=== PATIENT | female | born 1940 | race American Indian/Alaskan Native ===

== ENCOUNTER 2016-12-16 13:09 | Inpatient (IN) | payer MEDICARE ==
[2016-12-16 18:50] VITALS: BMI 35.1
[2016-12-16] MEDS: Insulin Lispro (humaLOG) 100 Units/ml Inj SC SCH (21:00)
[2016-12-17 06:30] LABS: BASO % 0.4 % (0.0-2.0); EOS # 0.3 K/uL (0.0-0.7); EOS % 2.7 % (0.0-4.0); HEMATOCRIT 34.5 % (34.0-47.0); LYMPH # 3.2 K/uL (1.0-4.3); MEAN CELL VOLUME 88.4 fl (81.0-99.0); MEAN CORPUSCULAR HEMOGLOBIN 29.1 pg (27.0-31.0); MEAN CORPUSCULAR HGB CONC 32.9 g/dL (33.0-37.0); MEAN PLATELET VOLUME 9.6 fl (7.2-11.7); MONO # 1.1 K/uL (0.0-0.8); MONO % 9.4 % (0.0-10.0); NEUT # 6.7 K/uL (1.8-7.0); NEUT % 59.5 % (50.0-75.0); NRBC % 0.1 % (0.0-0.0); RED CELL DISTRIBUTION WIDTH 13.8 % (11.5-14.5); WHITE BLOOD COUNT 11.3 K/uL (4.8-10.8)
[2016-12-17] MEDS: Insulin Lispro (humaLOG) 100 Units/ml Inj SC SCH ×4 (06:30→21:00)
[2016-12-17 06:42] LABS: ALKALINE PHOSPHATASE 61 U/L (38-126); ALT/SGPT 35 U/L (9-52); AST/SGOT 31 U/L (14-36); BILIRUBIN,TOTAL 0.5 mg/dl (0.2-1.3); BLOOD UREA NITROGEN 11 mg/dl (7-17); CALCIUM 9.2 mg/dL (8.4-10.2); CARBON DIOXIDE 32 mmol/L (22-30); CHLORIDE 102 mmol/L (98-107); GFR AFRICAN-AMERICAN > 60; GLUCOSE,RANDOM 88 mg/dL (65-105); MAGNESIUM 1.7 MG/DL (1.6-2.3); PHOSPHOROUS 3.5 mg/dl (2.5-4.5); POTASSIUM 4.2 MMOL/L (3.6-5.0); SODIUM 140 mmol/l (132-148); TOTAL PROTEIN 6.4 G/DL (6.3-8.2)
[2016-12-17 06:47] LABS: PARTIAL THROMBOPLASTIN TIME 30.6 Seconds (25.6-37.1)
[2016-12-17 07:06] LABS: THYROID STIMULATING HORMONE 2.77 mIU/ML (0.46-4.68)
[2016-12-17] MEDS: Enoxaparin 40 mg Syringe SC SCH (08:02)
[2016-12-17] MEDS: Pantoprazole 40 mg EC Tab PO SCH (08:03)
--- NOTE | 2016-12-17 13:21 | CP.PCM.CON ---
History of Present Illness - History of Present Illness History of Present Illness: Dr Garcia PMR consultation on Lauren Travis, born 1940, who has been admitted to [facility] for acute inpatient rehabilitation following a left CVA. She had a fall and noted weakness. Imaging revealed a left acute infarct. 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 short distances Review of Systems - Constitutional Constitutional: absent: Anorexia, Chills - EENT Nose/Mouth/Throat: absent: Nasal Congestion - Cardiovascular Cardiovascular: absent: Chest Pain - Respiratory Respiratory: absent: Chest Congestion - Gastrointestinal Gastrointestinal: absent: Belching, Diarrhea, Dyspepsia - Musculoskeletal Musculoskeletal: absent: Back Pain - Integumentary Integumentary: absent: Bleeding Lesions - Neurological Neurological: absent: Abnormal Movements, Behavioral Changes, Disequilibrium Past Patient History - Past Medical History & Family History Past Medical History?: Yes - Past Social History Smoking Status: Light Smoker < 10 Cigarettes Daily Alcohol: Occasional Drugs: Denies Home Situation {Lives}: With Family - CARDIAC Hx Hypertension: Yes - NEUROLOGICAL Hx Neurological Disorder: Yes HX Cerebrovascular Accident: Yes Other/Comment: - CVA: 1) 12/11/16 & 2) "About 10 years ago" with right residual weakness + left facial drooop; denied any aphasia - HEENT Hx HEENT Problems: Yes (c/o of blurry vision (but not wearing any glasses)) - ENDOCRINE/METABOLIC Hx Endocrine Disorders: Yes Hx Diabetes Mellitus Type 2: Yes - HEMATOLOGICAL/ONCOLOGICAL Hx AIDS: No Hx Human Immunodeficiency Virus (HIV): No - MUSCULOSKELETAL/RHEUMATOLOGICAL Hx Falls: Yes (12/11/16) - PSYCHIATRIC Hx Substance Use: No - SURGICAL HISTORY Hx Hysterectomy: Yes ("Years ago") - ANESTHESIA Hx Anesthesia: Yes Hx Anesthesia Reactions: No Hx Malignant Hyperthermia: No Has any member of the family had a problem w/ anesthesia?: No Meds Allergies/Adverse Reactions: Allergies Allergy/AdvReac Type Severity Reaction Status Date / Time No Known Allergies Allergy Verified 12/16/16 19:13 - Medications Medications: Current Medications Aspirin (Aspirin Chewable) 81 mg PO DAILY [facility] Last Admin: 12/17/16 08:02 Dose: 81 mg Atorvastatin Calcium (Lipitor) 20 mg PO HS [facility] Last Admin: 12/16/16 21:17 Dose: 20 mg Clopidogrel Bisulfate (Plavix) 75 mg PO DAILY [facility] Last Admin: 12/17/16 08:02 Dose: 75 mg Enoxaparin Sodium (Lovenox) 40 mg SC DAILY [facility] PRN Reason: Protocol Last Admin: 12/17/16 08:02 Dose: 40 mg Insulin Human Lispro (Humalog) 0 units SC ACHS [facility] PRN Reason: Protocol Last Admin: 12/17/16 11:43 Dose: Not Given Pantoprazole Sodium (Protonix Ec Tab) 40 mg PO DAILY [facility] Last Admin: 12/17/16 08:03 Dose: 40 mg Valsartan (Diovan) 160 mg PO DAILY [facility] Last Admin: 12/17/16 08:02 Dose: 160 mg Physical Exam - Constitutional Appears: Non-toxic, Other (obese) - Head Exam Head Exam: ATRAUMATIC, NORMAL INSPECTION, NORMOCEPHALIC - Respiratory Exam Respiratory Exam: absent: Wheezes - Cardiovascular Exam Cardiovascular Exam: REGULAR RHYTHM - GI/Abdominal Exam GI & Abdominal Exam: absent: Firm, Guarding - Neurological Exam Neurological exam: Alert, CN II-XII Intact, Oriented x3 - Psychiatric Exam Psychiatric exam: Normal Affect Results - Vital Signs Recent Vital Signs: Last Vital Signs Temp 97.5 F L 12/17/16 08:49 Pulse 64 12/17/16 08:51 Resp 18 12/17/16 08:49 BP 136/91 H 12/17/16 08:51 Pulse Ox 96 12/17/16 08:51 - Labs Result Diagrams: 12/17/16 05:25 12/17/16 05:25 Labs: Laboratory Results - last 24 hr 12/16/16 12/17/16 12/17/16 20:48 05:25 05:25 WBC 11.3 H RBC 3.90 Hgb 11.3 L Hct 34.5 MCV 88.4 MCH 29.1 MCHC 32.9 L RDW 13.8 Plt Count 252 MPV 9.6 Neut % (Auto) 59.5 Lymph % (Auto) 28.0 [place] % (Auto) 9.4 Eos % (Auto) 2.7 Baso % (Auto) 0.4 Neut # 6.7 Lymph # 3.2 [place] # 1.1 H Eos # 0.3 Baso # 0.0 PT 11.4 INR 1.1 APTT 30.6 Sodium Potassium Chloride Carbon Dioxide Anion Gap BUN Creatinine Est GFR ( Amer) Est GFR (Non-Af Amer) POC Glucose (mg/dL) 100 Random Glucose Calcium Phosphorus Magnesium Total Bilirubin AST ALT Alkaline Phosphatase Total Protein Albumin Globulin Albumin/Globulin Ratio Vitamin B12 TSH 3rd Generation 12/17/16 12/17/16 12/17/16 05:25 06:13 11:06 WBC RBC Hgb Hct MCV MCH MCHC RDW Plt Count MPV Neut % (Auto) Lymph % (Auto) [place] % (Auto) Eos % (Auto) Baso % (Auto) Neut # Lymph # [place] # Eos # Baso # PT INR APTT Sodium 140 Potassium 4.2 Chloride 102 Carbon Dioxide 32 H Anion Gap 10 BUN 11 Creatinine 0.7 Est GFR ( Amer) > 60 Est GFR (Non-Af Amer) > 60 POC Glucose (mg/dL) 86 126 H Random Glucose 88 Calcium 9.2 Phosphorus 3.5 Magnesium 1.7 Total Bilirubin 0.5 AST 31 ALT 35 Alkaline Phosphatase 61 Total Protein 6.4 Albumin 3.3 L Globulin 3.2 Albumin/Globulin Ratio 1.0 Vitamin B12 638 TSH 3rd Generation 2.77 Assessment & Plan - Assessment and Plan (Free Text) Assessment: PT/OT to continue to help increase functional independence Team conference for d/c planning Pain: controlled Vascular: no evidence of DVT GI: No evidence of constipation or diarrhea Patient is an excellent acute rehabilitation candidate and will have focused PT , OT and recreational therapy to help facilitate a safe and appropriate d/c plan She is quite weak overall and it will be a challenge to get her home without the need of some NASIM
--- NOTE | 2016-12-17 13:22 | CP.PCM.PN ---
Subjective - Date & Time of Evaluation Date of Evaluation: 12/17/16 Time of Evaluation: 13:21 - Subjective Subjective: CVA Objective - Vital Signs/Intake and Output Vital Signs (last 24 hours): Temp Pulse Resp BP Pulse Ox 97.5 F L 64 18 136/91 H 96 12/17/16 08:49 12/17/16 08:51 12/17/16 08:49 12/17/16 08:51 12/17/16 08:51 - Medications Medications: Current Medications Aspirin (Aspirin Chewable) 81 mg PO DAILY [facility] Last Admin: 12/17/16 08:02 Dose: 81 mg Atorvastatin Calcium (Lipitor) 20 mg PO HS [facility] Last Admin: 12/16/16 21:17 Dose: 20 mg Clopidogrel Bisulfate (Plavix) 75 mg PO DAILY [facility] Last Admin: 12/17/16 08:02 Dose: 75 mg Enoxaparin Sodium (Lovenox) 40 mg SC DAILY [facility] PRN Reason: Protocol Last Admin: 12/17/16 08:02 Dose: 40 mg Insulin Human Lispro (Humalog) 0 units SC [facility] PRN Reason: Protocol Last Admin: 12/17/16 11:43 Dose: Not Given Pantoprazole Sodium (Protonix Ec Tab) 40 mg PO DAILY [facility] Last Admin: 12/17/16 08:03 Dose: 40 mg Valsartan (Diovan) 160 mg PO DAILY [facility] Last Admin: 12/17/16 08:02 Dose: 160 mg - Labs Labs: 12/17/16 05:25 12/17/16 05:25 PT 11.4 Seconds (9.8-13.1) 12/17/16 05:25 INR 1.1 (0.9-1.2) 12/17/16 05:25 APTT 30.6 Seconds (25.6-37.1) 12/17/16 05:25 Physiatry Overall Plan of Care - Overall Plan of Care Estimated Length of Stay in Weeks: 3 Rehab Impairment: Mobility, Gait, Balance, Coordination Etiologic Diagnosis: Cerebrovascular Accident Rehab/Medical Prognosis: Fair - Anticipated Interventions Physical Therapy:: Yes Occupational Therapy:: Yes Recreational Therapy:: Yes - Therapy Goals Bed Mobility: Minimal Assistance Ambulation: Minimal Assistance Functional Positional Changes:: Minimal Assistance - Discharge Plan Discharge Destination: Subacute
--- NOTE | 2016-12-17 13:24 | PSY.TMCNF ---
Nursing - Vital Signs Vital Signs (Last 8 hours): Vital Signs 12/17/16 12/17/16 12/17/16 07:35 08:49 08:51 Temperature 97.5 F L 97.5 F L Pulse Rate 56 L 56 L 64 Respiratory 18 18 Rate Blood Pressure 180/81 H 180/81 H 136/91 H O2 Sat by Pulse 96 96 Oximetry Pain: 0 - Medications/Other Issues Comment: to follow as per nutrition protocol - Bladder Management Bladder Pattern: Normal Voiding Method: Bedpan - Bowel Management Bowel Pattern: Normal Physical Therapy - Bed Mobility Bed Mobility: Verbal Cues, Moderate Assistance - Transfers Wheelchair to Mat: Verbal Cues, Maximum Assistance Sit to Stand: Verbal Cues, Maximum Assistance - Ambulation Level of Assistance: Verbal Cues, Moderate Assistance Distance (ft.): 8 Assistive Devices: Rolling Walker - Stair Negotiation Stairs: Level of Assistance: Not Tested - Standing Balance Static Stand: Moderate Assistance Dynamic Stand: Unable to assess/perform - Pain Pain (assessed during therapy session): 0 Comment: pt denies pain - Insight/Carryover Insight/Carryover: Good - Patient/Family Education Comment: Pt educated on role of PT, PT goals, therapy schedule, and safety. Education for proper techniques during functional mobility training. - Assessment/Plan Assessment: PT IE complete today. Pt presents with impaired RLE/RUE strength, standing balance, and endurance resulting in pt requiring mod A for bed mobility , max A for transfers, and mod A for ambulating 8 feet with RW. Pt will benefit from skilled PT intervention to address deficits and maximize functional independence. Pt has supportive daughter at home. - Goals Timeframe: 4 weeks Goals: Sit < > supine with supervision. Sit < > stand with RW and supervision. Pt will ambulate 150 ft with RW and supervision. Pt will ascend/descend flight of stairs with B handrails and CGA. - Provider Therapist: Maria Eugenia Burden PT, DPT License Number: [id number] Occupational Therapy - Arousal/Attention/Orientation Patient Orientation: Person, Place, Time - Pain Pain (assessed during therapy session): 0 Comment: pt denies pain - Insight/Carryover Insight/Carryover: Good - Patient/Family Education Comment: Pt educated on role of PT, PT goals, therapy schedule, and safety. Education for proper techniques during functional mobility training. - Assessment/Plan Assessment: PT IE complete today. Pt presents with impaired RLE/RUE strength, standing balance, and endurance resulting in pt requiring mod A for bed mobility , max A for transfers, and mod A for ambulating 8 feet with RW. Pt will benefit from skilled PT intervention to address deficits and maximize functional independence. Pt has supportive daughter at home. - Goals Timeframe: 4 weeks Goals: Sit < > supine with supervision. Sit < > stand with RW and supervision. Pt will ambulate 150 ft with RW and supervision. Pt will ascend/descend flight of stairs with B handrails and CGA. Speech Therapy - Plan Assessment: PT IE complete today. Pt presents with impaired RLE/RUE strength, standing balance, and endurance resulting in pt requiring mod A for bed mobility , max A for transfers, and mod A for ambulating 8 feet with RW. Pt will benefit from skilled PT intervention to address deficits and maximize functional independence. Pt has supportive daughter at home. Recreational Therapy - Assessment Assessment/Plan: PT IE complete today. Pt presents with impaired RLE/RUE strength, standing balance, and endurance resulting in pt requiring mod A for bed mobility, max A for transfers, and mod A for ambulating 8 feet with RW. Pt will benefit from skilled PT intervention to address deficits and maximize functional independence. Pt has supportive daughter at home. Nutrition - Current Diet Current Diet/ Supplement/ Feedings: mech altered(finely chopped) thin liquids 2 gram Na low fat/low cholesterol - Appetite Percent Meal Consumed: 75-100% - Assessment/Goals/Time Frame Assessment/Goals/Time Frame: to follow as per nutrition protocol - Provider Provider: Pippa Erickson RD Case Management - Discharge Plan Discharge Plan: Home with significant other/family (2nd floor, daughter works time piece repairer. 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
--- NOTE | 2016-12-17 19:06 | CP.PCM.HP ---
Past Patient History - Past Medical History & Family History Past Medical History?: Yes - Past Social History Smoking Status: Light Smoker < 10 Cigarettes Daily - CARDIAC Hx Hypertension: Yes - NEUROLOGICAL HX Cerebrovascular Accident: Yes - HEENT Hx HEENT Problems: Yes (c/o of blurry vision (but not wearing any glasses)) - ENDOCRINE/METABOLIC Hx Diabetes Mellitus Type 2: Yes - HEMATOLOGICAL/ONCOLOGICAL Hx AIDS: No Hx Human Immunodeficiency Virus (HIV): No - MUSCULOSKELETAL/RHEUMATOLOGICAL Hx Falls: Yes (12/11/16) - PSYCHIATRIC Hx Substance Use: No - SURGICAL HISTORY Hx Hysterectomy: Yes ("Years ago") - ANESTHESIA Hx Anesthesia: Yes Hx Anesthesia Reactions: No Hx Malignant Hyperthermia: No Has any member of the family had a problem w/ anesthesia?: No Meds Allergies/Adverse Reactions: Allergies Allergy/AdvReac Type Severity Reaction Status Date / Time No Known Allergies Allergy Verified 12/16/16 19:13 Results - Vital Signs Recent Vital Signs: Last Vital Signs Temp 97.5 F L 12/17/16 08:49 Pulse 64 12/17/16 08:51 Resp 18 12/17/16 08:49 BP 136/91 H 12/17/16 08:51 Pulse Ox 96 12/17/16 08:51 - Labs Result Diagrams: 12/17/16 05:25 12/17/16 05:25 Labs: Laboratory Results - last 24 hr 12/16/16 12/17/16 12/17/16 20:48 05:25 05:25 WBC 11.3 H RBC 3.90 Hgb 11.3 L Hct 34.5 MCV 88.4 MCH 29.1 MCHC 32.9 L RDW 13.8 Plt Count 252 MPV 9.6 Neut % (Auto) 59.5 Lymph % (Auto) 28.0 [place] % (Auto) 9.4 Eos % (Auto) 2.7 Baso % (Auto) 0.4 Neut # 6.7 Lymph # 3.2 [place] # 1.1 H Eos # 0.3 Baso # 0.0 PT 11.4 INR 1.1 APTT 30.6 Sodium Potassium Chloride Carbon Dioxide Anion Gap BUN Creatinine Est GFR ( Amer) Est GFR (Non-Af Amer) POC Glucose (mg/dL) 100 Random Glucose Calcium Phosphorus Magnesium Total Bilirubin AST ALT Alkaline Phosphatase Total Protein Albumin Globulin Albumin/Globulin Ratio Vitamin B12 TSH 3rd Generation 12/17/16 12/17/16 12/17/16 05:25 06:13 11:06 WBC RBC Hgb Hct MCV MCH MCHC RDW Plt Count MPV Neut % (Auto) Lymph % (Auto) [place] % (Auto) Eos % (Auto) Baso % (Auto) Neut # Lymph # [place] # Eos # Baso # PT INR APTT Sodium 140 Potassium 4.2 Chloride 102 Carbon Dioxide 32 H Anion Gap 10 BUN 11 Creatinine 0.7 Est GFR ( Amer) > 60 Est GFR (Non-Af Amer) > 60 POC Glucose (mg/dL) 86 126 H Random Glucose 88 Calcium 9.2 Phosphorus 3.5 Magnesium 1.7 Total Bilirubin 0.5 AST 31 ALT 35 Alkaline Phosphatase 61 Total Protein 6.4 Albumin 3.3 L Globulin 3.2 Albumin/Globulin Ratio 1.0 Vitamin B12 638 TSH 3rd Generation 2.77 12/17/16 12/17/16 13:58 15:53 WBC RBC Hgb Hct MCV MCH MCHC RDW Plt Count MPV Neut % (Auto) Lymph % (Auto) [place] % (Auto) Eos % (Auto) Baso % (Auto) Neut # Lymph # [place] # Eos # Baso # PT INR APTT Sodium Potassium Chloride Carbon Dioxide Anion Gap BUN Creatinine Est GFR ( Amer) Est GFR (Non-Af Amer) POC Glucose (mg/dL) 173 H 163 H Random Glucose Calcium Phosphorus Magnesium Total Bilirubin AST ALT Alkaline Phosphatase Total Protein Albumin Globulin Albumin/Globulin Ratio Vitamin B12 TSH 3rd Generation
[2016-12-18] MEDS: Insulin Lispro (humaLOG) 100 Units/ml Inj SC SCH ×4 (07:39→21:01)
[2016-12-18] MEDS: Enoxaparin 40 mg Syringe SC SCH (08:45)
[2016-12-18] MEDS: Pantoprazole 40 mg EC Tab PO SCH (08:45)
--- NOTE | 2016-12-18 23:40 | CP.PCM.PN ---
Subjective - Date & Time of Evaluation Date of Evaluation: 12/18/16 Time of Evaluation: 18:30 Objective - Vital Signs/Intake and Output Vital Signs (last 24 hours): Temp Pulse Resp BP Pulse Ox 98.4 F 64 20 154/86 H 98 12/18/16 20:00 12/18/16 20:00 12/18/16 20:00 12/18/16 20:00 12/18/16 20:00 - Medications Medications: Current Medications Acetaminophen (Tylenol 325mg Tab) 650 mg PO Q6 PRN PRN Reason: pain 4-10 Aspirin (Aspirin Chewable) 81 mg PO DAILY [facility] Last Admin: 12/18/16 08:44 Dose: 81 mg Atorvastatin Calcium (Lipitor) 20 mg PO HS [facility] Last Admin: 12/18/16 21:02 Dose: 20 mg Clopidogrel Bisulfate (Plavix) 75 mg PO DAILY [facility] Last Admin: 12/18/16 08:44 Dose: 75 mg Enoxaparin Sodium (Lovenox) 40 mg SC DAILY [facility] PRN Reason: Protocol Last Admin: 12/18/16 08:45 Dose: 40 mg Insulin Human Lispro (Humalog) 0 units SC [facility] PRN Reason: Protocol Last Admin: 12/18/16 21:01 Dose: Not Given Pantoprazole Sodium (Protonix Ec Tab) 40 mg PO DAILY [facility] Last Admin: 12/18/16 08:45 Dose: 40 mg Valsartan (Diovan) 160 mg PO DAILY [facility] Last Admin: 12/18/16 08:44 Dose: 160 mg - Labs Labs: 12/17/16 05:25 12/17/16 05:25 PT 11.4 Seconds (9.8-13.1) 12/17/16 05:25 INR 1.1 (0.9-1.2) 12/17/16 05:25 APTT 30.6 Seconds (25.6-37.1) 12/17/16 05:25
[2016-12-19] MEDS: Insulin Lispro (humaLOG) 100 Units/ml Inj SC SCH ×4 (06:47→21:07)
[2016-12-19] MEDS: Enoxaparin 40 mg Syringe SC SCH (08:22)
[2016-12-19] MEDS: Pantoprazole 40 mg EC Tab PO SCH (08:23)
--- NOTE | 2016-12-19 17:00 | CP.PCM.CON ---
History of Present Illness - History of Present Illness History of Present Illness: 76 female seen at bedside concerning right sided weakness s/p a fall and for elonagated toenails. Pt reprots a PMH of 2 CVA the most recent occurring "about 10 years ago" Pt reports right side weakness compared to left. Pt reports tenderness to left lower extremity on palpation. Pt reports prior ambulatory activity level prior to most recent incident and mobile with use of rolling walker. Pt denies routine outpatient podiatric care. Pt denies recent f/c/cp/ sob/n/v. Past Patient History - Past Medical History & Family History Past Medical History?: Yes - Past Social History Smoking Status: Light Smoker < 10 Cigarettes Daily Alcohol: Occasional Drugs: Denies Home Situation {Lives}: With Family - CARDIAC Hx Hypertension: Yes - NEUROLOGICAL Hx Neurological Disorder: Yes HX Cerebrovascular Accident: Yes Other/Comment: - CVA: 1) 12/11/16 & 2) "About 10 years ago" with right residual weakness + left facial drooop; denied any aphasia - HEENT Hx HEENT Problems: Yes (c/o of blurry vision (but not wearing any glasses)) - ENDOCRINE/METABOLIC Hx Endocrine Disorders: Yes Hx Diabetes Mellitus Type 2: Yes - HEMATOLOGICAL/ONCOLOGICAL Hx AIDS: No Hx Human Immunodeficiency Virus (HIV): No - MUSCULOSKELETAL/RHEUMATOLOGICAL Hx Falls: Yes (12/11/16) - PSYCHIATRIC Hx Substance Use: No - SURGICAL HISTORY Hx Hysterectomy: Yes ("Years ago") - ANESTHESIA Hx Anesthesia: Yes Hx Anesthesia Reactions: No Hx Malignant Hyperthermia: No Has any member of the family had a problem w/ anesthesia?: No Meds Allergies/Adverse Reactions: Allergies Allergy/AdvReac Type Severity Reaction Status Date / Time No Known Allergies Allergy Verified 12/16/16 19:13 - Medications Medications: Current Medications Acetaminophen (Tylenol 325mg Tab) 650 mg PO Q6 PRN PRN Reason: pain 4-10 Aspirin (Aspirin Chewable) 81 mg PO DAILY [facility] Last Admin: 12/19/16 08:22 Dose: 81 mg Atorvastatin Calcium (Lipitor) 20 mg PO HS [facility] Last Admin: 12/18/16 21:02 Dose: 20 mg Clopidogrel Bisulfate (Plavix) 75 mg PO DAILY [facility] Last Admin: 12/19/16 08:23 Dose: 75 mg Enoxaparin Sodium (Lovenox) 40 mg SC DAILY [facility] PRN Reason: Protocol Last Admin: 12/19/16 08:22 Dose: 40 mg Insulin Human Lispro (Humalog) 0 units SC ACHS [facility] PRN Reason: Protocol Last Admin: 12/19/16 16:36 Dose: Not Given Pantoprazole Sodium (Protonix Ec Tab) 40 mg PO DAILY [facility] Last Admin: 12/19/16 08:23 Dose: 40 mg Valsartan (Diovan) 160 mg PO DAILY [facility] Last Admin: 12/19/16 08:22 Dose: 160 mg Physical Exam - Constitutional Appears: Well, Non-toxic, No Acute Distress - Extremities Exam Additional comments: VASC: PT and DP pedal pulses graded 1/4 bilaterally. +2 pitting edema noted bilaterally, reduces on elevation, end rebounds upon dependency. Temperature runs warm to cool proximal to distal within normal limits. NEURO: Protective and epicritic sensation grossly intact bilaterally. Left side shows mild hyperreflexia. Absent clonus bilaterally. Negative Babinski test bilaterally. DERM: Acral skin xerosis noted. No interdigital macerations noted bilaterally. Yellowed, brittle, elongated, toenails x 10 with subungual debris to both feet. No hyperpigmentations noted. MUSK:No major leg muscle atrophy noted and no significant decrease of muscle tone bilaterally. Tenderness noted at level of ankles bilaterally. Pedal muscle strength is noted 3/5 to right lower extremity, weak 5/5 to left lower extremity. - Neurological Exam Neurological exam: Alert, Oriented x3 - Psychiatric Exam Psychiatric exam: Normal Affect, Normal Mood Results - Vital Signs Recent Vital Signs: Last Vital Signs Temp 97.1 F L 12/19/16 08:14 Pulse 96 H 12/19/16 15:02 Resp 19 12/19/16 08:14 BP 141/76 12/19/16 09:27 Pulse Ox 98 12/19/16 15:02 - Labs Result Diagrams: 12/23/16 06:00 12/17/16 05:25 Labs: Laboratory Results - last 24 hr 12/18/16 12/19/16 12/19/16 20:32 06:00 11:49 POC Glucose (mg/dL) 116 H 97 152 H 12/19/16 16:01 POC Glucose (mg/dL) 135 H Assessment & Plan - Assessment and Plan (Free Text) Assessment: 76 year old female with pedal onychomycosis bilaterally. 2) Right sided joann- paresis of lower extremity 3) Bilateral lower extremity venous insufficiency. 1) Plan: Pt evaluated and treated. Chart, labs, and vitals were reviewed. Discussed with attending, Dr Wong. Performed aseptic onychoreduction to all 10 nail plates to hygienic length, without incident. Pt to continue to use outpatient compression hose from prior nursing care facility for use to bilateral lower extremity edema, elacticity of hose remains adaquete. Pt co contine rehabilittions for right sides muscle weakness. Pand control for hyperstesia. Podiatry sgning off at this time. Please reconsult as needed. . - Date & Time Date: 12/26/16 Time: 17:00
--- NOTE | 2016-12-19 17:52 | CP.PCM.PN ---
Subjective - Date & Time of Evaluation Date of Evaluation: 12/19/16 Time of Evaluation: 17:51 - Subjective Subjective: Patient seen in room in good spirits improved right UE ROM and function ambulated 8' in therapy continue current care Objective - Vital Signs/Intake and Output Vital Signs (last 24 hours): Temp Pulse Resp BP Pulse Ox 97.1 F L 96 H 19 141/76 98 12/19/16 08:14 12/19/16 15:02 12/19/16 08:14 12/19/16 09:27 12/19/16 15:02 - Medications Medications: Current Medications Acetaminophen (Tylenol 325mg Tab) 650 mg PO Q6 PRN PRN Reason: pain 4-10 Aspirin (Aspirin Chewable) 81 mg PO DAILY [facility] Last Admin: 12/19/16 08:22 Dose: 81 mg Atorvastatin Calcium (Lipitor) 20 mg PO HS [facility] Last Admin: 12/18/16 21:02 Dose: 20 mg Clopidogrel Bisulfate (Plavix) 75 mg PO DAILY [facility] Last Admin: 12/19/16 08:23 Dose: 75 mg Enoxaparin Sodium (Lovenox) 40 mg SC DAILY [facility] PRN Reason: Protocol Last Admin: 12/19/16 08:22 Dose: 40 mg Insulin Human Lispro (Humalog) 0 units SC [facility] PRN Reason: Protocol Last Admin: 12/19/16 16:36 Dose: Not Given Pantoprazole Sodium (Protonix Ec Tab) 40 mg PO DAILY [facility] Last Admin: 12/19/16 08:23 Dose: 40 mg Valsartan (Diovan) 160 mg PO DAILY [facility] Last Admin: 12/19/16 08:22 Dose: 160 mg - Labs Labs: 12/17/16 05:25 12/17/16 05:25 PT 11.4 Seconds (9.8-13.1) 12/17/16 05:25 INR 1.1 (0.9-1.2) 12/17/16 05:25 APTT 30.6 Seconds (25.6-37.1) 12/17/16 05:25
--- NOTE | 2016-12-19 19:42 | CP.PCM.PN ---
Subjective - Date & Time of Evaluation Date of Evaluation: 12/19/16 Time of Evaluation: 18:50 Objective - Vital Signs/Intake and Output Vital Signs (last 24 hours): Temp Pulse Resp BP Pulse Ox 97.1 F L 96 H 19 141/76 98 12/19/16 08:14 12/19/16 15:02 12/19/16 08:14 12/19/16 09:27 12/19/16 15:02 - Medications Medications: Current Medications Acetaminophen (Tylenol 325mg Tab) 650 mg PO Q6 PRN PRN Reason: pain 4-10 Aspirin (Aspirin Chewable) 81 mg PO DAILY [facility] Last Admin: 12/19/16 08:22 Dose: 81 mg Atorvastatin Calcium (Lipitor) 20 mg PO HS [facility] Last Admin: 12/18/16 21:02 Dose: 20 mg Clopidogrel Bisulfate (Plavix) 75 mg PO DAILY [facility] Last Admin: 12/19/16 08:23 Dose: 75 mg Enoxaparin Sodium (Lovenox) 40 mg SC DAILY [facility] PRN Reason: Protocol Last Admin: 12/19/16 08:22 Dose: 40 mg Insulin Human Lispro (Humalog) 0 units SC [facility] PRN Reason: Protocol Last Admin: 12/19/16 16:36 Dose: Not Given Lactulose (Enulose) 20 gm PO BID [facility] Pantoprazole Sodium (Protonix Ec Tab) 40 mg PO DAILY [facility] Last Admin: 12/19/16 08:23 Dose: 40 mg Valsartan (Diovan) 160 mg PO DAILY [facility] Last Admin: 12/19/16 08:22 Dose: 160 mg - Labs Labs: 12/17/16 05:25 12/17/16 05:25 PT 11.4 Seconds (9.8-13.1) 12/17/16 05:25 INR 1.1 (0.9-1.2) 12/17/16 05:25 APTT 30.6 Seconds (25.6-37.1) 12/17/16 05:25
[2016-12-20] MEDS: Insulin Lispro (humaLOG) 100 Units/ml Inj SC SCH ×4 (07:14→21:30)
[2016-12-20 07:33] LABS: HEMATOCRIT 34.4 % (34.0-47.0); MEAN CORPUSCULAR HEMOGLOBIN 29.2 pg (27.0-31.0); MEAN CORPUSCULAR HGB CONC 33.1 g/dL (33.0-37.0); RED CELL DISTRIBUTION WIDTH 13.6 % (11.5-14.5); WHITE BLOOD COUNT 11.6 K/uL (4.8-10.8)
[2016-12-20] MEDS: Enoxaparin 40 mg Syringe SC SCH (09:00)
[2016-12-20] MEDS: Pantoprazole 40 mg EC Tab PO SCH (09:01)
--- NOTE | 2016-12-20 11:39 | CP.PCM.CON ---
History of Present Illness - History of Present Illness History of Present Illness: pt is a 76 year old female admitted to [facility] following a CVA. Pt reported a previous CVA, HTN and DM. See medical record for complete medical history and medications. Social History: pt lives with her daughter ( osiel) and son in law. Pt is a . She was 2x, the second time for 10 years before being . Pt has two stepdaughters. HEr other stepdaughter resides in [place]. Pt reported positive family relationships and support. Ed.Voc: Pt raised in [place] [place], she worked as a [employer]. Pt denied a psychiatric history, pt denied a history of alc/sub abuse. pt spoke of time spent watching TV. Ambulating at home. MSE: pt alert, oriented x2, relevant/coherent no psychosis, affect constricted, mood depressed. No si no hi ideation. Pt reported depression on interview, spoke of loss of independence and being independent throughout her life. She spoke of dependency at present and tensions. Dx: Adjustment Dx with depression Consider medication managment for depression within the next 48-72 hours/ consultation Thank you for this referral, Dr. Stroud Past Patient History - Past Medical History & Family History Past Medical History?: Yes - Past Social History Smoking Status: Light Smoker < 10 Cigarettes Daily Alcohol: Occasional Drugs: Denies Home Situation {Lives}: With Family - CARDIAC Hx Hypertension: Yes - NEUROLOGICAL Hx Neurological Disorder: Yes HX Cerebrovascular Accident: Yes Other/Comment: - CVA: 1) 12/11/16 & 2) "About 10 years ago" with right residual weakness + left facial drooop; denied any aphasia - HEENT Hx HEENT Problems: Yes (c/o of blurry vision (but not wearing any glasses)) - ENDOCRINE/METABOLIC Hx Endocrine Disorders: Yes Hx Diabetes Mellitus Type 2: Yes - HEMATOLOGICAL/ONCOLOGICAL Hx AIDS: No Hx Human Immunodeficiency Virus (HIV): No - MUSCULOSKELETAL/RHEUMATOLOGICAL Hx Falls: Yes (12/11/16) - PSYCHIATRIC Hx Substance Use: No - SURGICAL HISTORY Hx Hysterectomy: Yes ("Years ago") - ANESTHESIA Hx Anesthesia: Yes Hx Anesthesia Reactions: No Hx Malignant Hyperthermia: No Has any member of the family had a problem w/ anesthesia?: No Meds Allergies/Adverse Reactions: Allergies Allergy/AdvReac Type Severity Reaction Status Date / Time No Known Allergies Allergy Verified 12/16/16 19:13 - Medications Medications: Current Medications Acetaminophen (Tylenol 325mg Tab) 650 mg PO Q6 PRN PRN Reason: pain 4-10 Aspirin (Aspirin Chewable) 81 mg PO DAILY [facility] Last Admin: 12/20/16 09:00 Dose: 81 mg Atorvastatin Calcium (Lipitor) 20 mg PO HS [facility] Last Admin: 12/19/16 21:06 Dose: 20 mg Clopidogrel Bisulfate (Plavix) 75 mg PO DAILY [facility] Last Admin: 12/20/16 09:01 Dose: 75 mg Enoxaparin Sodium (Lovenox) 40 mg SC DAILY [facility] PRN Reason: Protocol Last Admin: 12/20/16 09:00 Dose: 40 mg Insulin Human Lispro (Humalog) 0 units SC [facility] PRN Reason: Protocol Last Admin: 12/20/16 07:14 Dose: Not Given Lactulose (Enulose) 20 gm PO BID [facility] Last Admin: 12/20/16 09:00 Dose: Not Given Pantoprazole Sodium (Protonix Ec Tab) 40 mg PO DAILY [facility] Last Admin: 12/20/16 09:01 Dose: 40 mg Valsartan (Diovan) 160 mg PO DAILY [facility] Last Admin: 12/20/16 09:00 Dose: 160 mg Results - Vital Signs Recent Vital Signs: Last Vital Signs Temp 97.2 F L 12/20/16 07:59 Pulse 71 12/20/16 07:59 Resp 20 12/20/16 07:59 BP 187/94 H 12/20/16 07:59 Pulse Ox 97 12/20/16 07:59 - Labs Result Diagrams: 12/20/16 06:35 12/17/16 05:25 Labs: Laboratory Results - last 24 hr 12/19/16 12/19/16 12/19/16 11:49 16:01 20:41 WBC RBC Hgb Hct MCV MCH MCHC RDW Plt Count POC Glucose (mg/dL) 152 H 135 H 126 H 12/20/16 12/20/16 12/20/16 06:07 06:35 11:06 WBC 11.6 H RBC 3.91 Hgb 11.4 L Hct 34.4 MCV 88.0 MCH 29.2 MCHC 33.1 RDW 13.6 Plt Count 248 POC Glucose (mg/dL) 101 156 H
--- NOTE | 2016-12-20 12:30 | CP.PCM.PN ---
Subjective - Date & Time of Evaluation Date of Evaluation: 12/20/16 Time of Evaluation: 11:45 - Subjective Subjective: Seen and examined at the bed side. Speech improved. Still the Lower Extremity weakness. Objective - Vital Signs/Intake and Output Vital Signs (last 24 hours): Temp Pulse Resp BP Pulse Ox 97.2 F L 71 20 187/94 H 97 12/20/16 07:59 12/20/16 07:59 12/20/16 07:59 12/20/16 07:59 12/20/16 07:59 - Medications Medications: Current Medications Acetaminophen (Tylenol 325mg Tab) 650 mg PO Q6 PRN PRN Reason: pain 4-10 Aspirin (Aspirin Chewable) 81 mg PO DAILY [facility] Last Admin: 12/20/16 09:00 Dose: 81 mg Atorvastatin Calcium (Lipitor) 20 mg PO HS [facility] Last Admin: 12/19/16 21:06 Dose: 20 mg Clopidogrel Bisulfate (Plavix) 75 mg PO DAILY [facility] Last Admin: 12/20/16 09:01 Dose: 75 mg Enoxaparin Sodium (Lovenox) 40 mg SC DAILY [facility] PRN Reason: Protocol Last Admin: 12/20/16 09:00 Dose: 40 mg Insulin Human Lispro (Humalog) 0 units SC [facility] PRN Reason: Protocol Last Admin: 12/20/16 07:14 Dose: Not Given Lactulose (Enulose) 20 gm PO BID [facility] Last Admin: 12/20/16 09:00 Dose: Not Given Pantoprazole Sodium (Protonix Ec Tab) 40 mg PO DAILY [facility] Last Admin: 12/20/16 09:01 Dose: 40 mg Valsartan (Diovan) 160 mg PO DAILY [facility] Last Admin: 12/20/16 09:00 Dose: 160 mg - Labs Labs: 12/20/16 06:35 12/17/16 05:25 PT 11.4 Seconds (9.8-13.1) 12/17/16 05:25 INR 1.1 (0.9-1.2) 12/17/16 05:25 APTT 30.6 Seconds (25.6-37.1) 12/17/16 05:25 - Constitutional Appears: Well - Head Exam Head Exam: ATRAUMATIC, NORMAL INSPECTION, NORMOCEPHALIC - Eye Exam Eye Exam: EOMI, Normal appearance, PERRL Pupil Exam: NORMAL ACCOMODATION, PERRL - ENT Exam ENT Exam: Mucous Membranes Moist, Normal Exam - Neck Exam Neck Exam: Full ROM, Normal Inspection. absent: Lymphadenopathy - Respiratory Exam Respiratory Exam: Clear to Ausculation Bilateral, NORMAL BREATHING PATTERN - Cardiovascular Exam Cardiovascular Exam: REGULAR RHYTHM, +S1, +S2. absent: Murmur - GI/Abdominal Exam GI & Abdominal Exam: Soft, Normal Bowel Sounds. absent: Tenderness - Extremities Exam Extremities Exam: Full ROM, Normal Capillary Refill, Normal Inspection. absent : Joint Swelling, Pedal Edema - Back Exam Back Exam: NORMAL INSPECTION - Neurological Exam Neurological Exam: Alert, Awake, CN II-XII Intact, Normal Gait, Oriented x3 - Psychiatric Exam Psychiatric exam: Normal Affect, Normal Mood - Skin Skin Exam: Dry, Intact, Normal Color, Warm
[2016-12-21] MEDS: Insulin Lispro (humaLOG) 100 Units/ml Inj SC SCH ×4 (07:08→21:05)
[2016-12-21] MEDS: Enoxaparin 40 mg Syringe SC SCH (09:09)
[2016-12-21] MEDS: Pantoprazole 40 mg EC Tab PO SCH (09:10)
--- NOTE | 2016-12-21 23:17 | CP.PCM.PN ---
Subjective - Date & Time of Evaluation Date of Evaluation: 12/21/16 Time of Evaluation: 15:45 Objective - Vital Signs/Intake and Output Vital Signs (last 24 hours): Temp Pulse Resp BP Pulse Ox 97.9 F 63 20 155/74 H 98 12/21/16 20:29 12/21/16 20:29 12/21/16 20:29 12/21/16 20:29 12/21/16 20:29 - Medications Medications: Current Medications Acetaminophen (Tylenol 325mg Tab) 650 mg PO Q6 PRN PRN Reason: pain 4-10 Aspirin (Aspirin Chewable) 81 mg PO DAILY [facility] Last Admin: 12/21/16 09:10 Dose: 81 mg Atorvastatin Calcium (Lipitor) 20 mg PO HS [facility] Last Admin: 12/21/16 21:16 Dose: 20 mg Clopidogrel Bisulfate (Plavix) 75 mg PO DAILY [facility] Last Admin: 12/21/16 09:10 Dose: 75 mg Enoxaparin Sodium (Lovenox) 40 mg SC DAILY [facility] PRN Reason: Protocol Last Admin: 12/21/16 09:09 Dose: 40 mg Insulin Human Lispro (Humalog) 0 units SC [facility] PRN Reason: Protocol Last Admin: 12/21/16 21:05 Dose: Not Given Lactulose (Enulose) 20 gm PO BID [facility] Last Admin: 12/21/16 17:21 Dose: 20 gm Pantoprazole Sodium (Protonix Ec Tab) 40 mg PO DAILY [facility] Last Admin: 12/21/16 09:10 Dose: 40 mg Valsartan (Diovan) 160 mg PO DAILY [facility] Last Admin: 12/21/16 09:09 Dose: 160 mg - Labs Labs: 12/20/16 06:35 12/17/16 05:25 PT 11.4 Seconds (9.8-13.1) 12/17/16 05:25 INR 1.1 (0.9-1.2) 12/17/16 05:25 APTT 30.6 Seconds (25.6-37.1) 12/17/16 05:25
[2016-12-22] MEDS: Insulin Lispro (humaLOG) 100 Units/ml Inj SC SCH ×2 (06:30→21:02)
[2016-12-22] MEDS: Pantoprazole 40 mg EC Tab PO SCH (09:31)
[2016-12-22] MEDS: Enoxaparin 40 mg Syringe SC SCH (09:31)
--- NOTE | 2016-12-22 15:14 | CP.PCM.PN ---
Subjective - Date & Time of Evaluation Date of Evaluation: 12/21/16 Time of Evaluation: 13:00 - Subjective Subjective: No acute complaints at present Objective - Vital Signs/Intake and Output Vital Signs (last 24 hours): Temp Pulse Resp BP Pulse Ox 98.0 F 88 19 125/74 97 12/22/16 10:00 12/22/16 10:00 12/22/16 10:00 12/22/16 10:00 12/22/16 10:00 - Medications Medications: Current Medications Acetaminophen (Tylenol 325mg Tab) 650 mg PO Q6 PRN PRN Reason: pain 4-10 Aspirin (Aspirin Chewable) 81 mg PO DAILY [facility] Last Admin: 12/22/16 09:30 Dose: 81 mg Atorvastatin Calcium (Lipitor) 20 mg PO HS [facility] Last Admin: 12/21/16 21:16 Dose: 20 mg Clopidogrel Bisulfate (Plavix) 75 mg PO DAILY [facility] Last Admin: 12/22/16 09:31 Dose: 75 mg Enoxaparin Sodium (Lovenox) 40 mg SC DAILY [facility] PRN Reason: Protocol Last Admin: 12/22/16 09:31 Dose: 40 mg Insulin Human Lispro (Humalog) 0 units SC 0630,2100 [facility] PRN Reason: Protocol Lactulose (Enulose) 20 gm PO BID [facility] Last Admin: 12/22/16 09:31 Dose: Not Given Pantoprazole Sodium (Protonix Ec Tab) 40 mg PO DAILY [facility] Last Admin: 12/22/16 09:31 Dose: 40 mg Valsartan (Diovan) 160 mg PO DAILY [facility] Last Admin: 12/22/16 09:31 Dose: 160 mg - Labs Labs: 12/20/16 06:35 12/17/16 05:25 PT 11.4 Seconds (9.8-13.1) 12/17/16 05:25 INR 1.1 (0.9-1.2) 12/17/16 05:25 APTT 30.6 Seconds (25.6-37.1) 12/17/16 05:25 - Head Exam Head Exam: ATRAUMATIC, NORMAL INSPECTION, NORMOCEPHALIC - Eye Exam Eye Exam: EOMI, Normal appearance Pupil Exam: NORMAL ACCOMODATION, PERRL - ENT Exam ENT Exam: Mucous Membranes Moist - Neck Exam Neck Exam: Normal Inspection - Respiratory Exam Respiratory Exam: NORMAL BREATHING PATTERN - Cardiovascular Exam Cardiovascular Exam: REGULAR RHYTHM - GI/Abdominal Exam GI & Abdominal Exam: Normal Bowel Sounds - Rectal Exam Rectal Exam: NORMAL INSPECTION - Exam External exam: NORMAL EXTERNAL EXAM - Extremities Exam Extremities Exam: Normal Inspection - Back Exam Back Exam: NORMAL INSPECTION - Neurological Exam Neurological Exam: Alert, Awake Additional comments: weakness - Psychiatric Exam Psychiatric exam: Normal Affect, Normal Mood - Skin Skin Exam: Normal Color Assessment and Plan - Assessment and Plan (Free Text) Assessment: Acute Cva Plan for physical, occupational, rec therapy covering for Dr Garcia DM HTn as per PMD lab foolow up
--- NOTE | 2016-12-22 23:55 | CP.PCM.PN ---
Subjective - Date & Time of Evaluation Date of Evaluation: 12/22/16 Time of Evaluation: 15:45 Objective - Vital Signs/Intake and Output Vital Signs (last 24 hours): Temp Pulse Resp BP Pulse Ox 97.9 F 55 L 20 174/80 H 99 12/22/16 20:44 12/22/16 22:13 12/22/16 20:44 12/22/16 22:13 12/22/16 20:44 - Medications Medications: Current Medications Acetaminophen (Tylenol 325mg Tab) 650 mg PO Q6 PRN PRN Reason: pain 4-10 Aspirin (Aspirin Chewable) 81 mg PO DAILY [facility] Last Admin: 12/22/16 09:30 Dose: 81 mg Atorvastatin Calcium (Lipitor) 20 mg PO HS [facility] Last Admin: 12/22/16 22:14 Dose: 20 mg Clopidogrel Bisulfate (Plavix) 75 mg PO DAILY [facility] Last Admin: 12/22/16 09:31 Dose: 75 mg Enoxaparin Sodium (Lovenox) 40 mg SC DAILY [facility] PRN Reason: Protocol Last Admin: 12/22/16 09:31 Dose: 40 mg Insulin Human Lispro (Humalog) 0 units SC 0630,2100 [facility] PRN Reason: Protocol Last Admin: 12/22/16 21:02 Dose: Not Given Pantoprazole Sodium (Protonix Ec Tab) 40 mg PO DAILY [facility] Last Admin: 12/22/16 09:31 Dose: 40 mg Valsartan (Diovan) 320 mg PO DAILY [facility] - Labs Labs: 12/20/16 06:35 12/17/16 05:25 PT 11.4 Seconds (9.8-13.1) 12/17/16 05:25 INR 1.1 (0.9-1.2) 12/17/16 05:25 APTT 30.6 Seconds (25.6-37.1) 12/17/16 05:25
[2016-12-23] MEDS: Insulin Lispro (humaLOG) 100 Units/ml Inj SC SCH ×2 (05:54→21:28)
[2016-12-23 07:21] LABS: HEMATOCRIT 34.1 % (34.0-47.0); MEAN CELL VOLUME 88.9 fl (81.0-99.0); MEAN CORPUSCULAR HGB CONC 32.6 g/dL (33.0-37.0); RED CELL DISTRIBUTION WIDTH 13.8 % (11.5-14.5); WHITE BLOOD COUNT 10.3 K/uL (4.8-10.8)
[2016-12-23] MEDS: Pantoprazole 40 mg EC Tab PO SCH (08:39)
[2016-12-23] MEDS: Enoxaparin 40 mg Syringe SC SCH (08:39)
--- NOTE | 2016-12-24 01:13 | CP.PCM.PN ---
Subjective - Date & Time of Evaluation Date of Evaluation: 12/23/16 Time of Evaluation: 14:15 Objective - Vital Signs/Intake and Output Vital Signs (last 24 hours): Temp Pulse Resp BP Pulse Ox 96.9 F L 64 20 154/84 H 97 12/23/16 20:00 12/23/16 20:00 12/23/16 20:00 12/23/16 20:00 12/23/16 20:00 - Medications Medications: Current Medications Acetaminophen (Tylenol 325mg Tab) 650 mg PO Q6 PRN PRN Reason: pain 4-10 Aspirin (Aspirin Chewable) 81 mg PO DAILY [facility] Last Admin: 12/23/16 08:39 Dose: 81 mg Atorvastatin Calcium (Lipitor) 20 mg PO HS [facility] Last Admin: 12/23/16 21:27 Dose: 20 mg Clopidogrel Bisulfate (Plavix) 75 mg PO DAILY [facility] Last Admin: 12/23/16 08:39 Dose: 75 mg Enoxaparin Sodium (Lovenox) 40 mg SC DAILY [facility] PRN Reason: Protocol Last Admin: 12/23/16 08:39 Dose: 40 mg Insulin Human Lispro (Humalog) 0 units SC 0630,2100 [facility] PRN Reason: Protocol Last Admin: 12/23/16 21:28 Dose: Not Given Pantoprazole Sodium (Protonix Ec Tab) 40 mg PO DAILY [facility] Last Admin: 12/23/16 08:39 Dose: 40 mg Valsartan (Diovan) 320 mg PO DAILY [facility] Last Admin: 12/23/16 08:39 Dose: 320 mg - Labs Labs: 12/23/16 06:00 12/17/16 05:25 PT 11.4 Seconds (9.8-13.1) 12/17/16 05:25 INR 1.1 (0.9-1.2) 12/17/16 05:25 APTT 30.6 Seconds (25.6-37.1) 12/17/16 05:25
[2016-12-24] MEDS: Insulin Lispro (humaLOG) 100 Units/ml Inj SC SCH ×2 (07:00→21:08)
[2016-12-24] MEDS: Enoxaparin 40 mg Syringe SC SCH (09:07)
[2016-12-24] MEDS: Pantoprazole 40 mg EC Tab PO SCH (09:07)
--- NOTE | 2016-12-24 13:15 | PSY.TMCNF ---
Nursing - Vital Signs Vital Signs (Last 8 hours): Vital Signs 12/24/16 12/24/16 09:00 09:10 Temperature 97.7 F 97.7 F Pulse Rate 87 87 Respiratory 20 20 Rate Blood Pressure 156/80 H 156/80 H O2 Sat by Pulse 97 Oximetry Pain: 0 - Precautions: Precautions: Fall Prevention - Medications/Other Issues Comment: Safety - Consults Comment: Dr. Garcia - Skin Incision Site: sternal area Dressing Status: Changed Incision: Healing Well Incision Line Treatment: Scant serosanguinous drainage noted; dry dressing change rendered as ordered. - Toileting Toileting: Moderate Assistance - Bladder Management Bladder Pattern: Incontinent Voiding Method: Toilet, Bedpan, Diaper Bladder Management: Moderate Assistance - Bowel Management Bowel Pattern: Normal Bowel Management: Moderate Assistance - Transfers Transfers: Minimal Assistance - ADL's ADL's: Moderate Assistance - Pain Management Comments: Denies pain - Patient/Family Teaching Comments: Safety, post CVA care - Goals/Time Frame Comments: per IPOC Physical Therapy - Bed Mobility Bed Mobility: Moderate Assistance - Transfers Wheelchair to Mat: Verbal Cues, Minimal Assistance Sit to Stand: Verbal Cues, Minimal Assistance - Ambulation Level of Assistance: Verbal Cues, Contact Guard Distance (ft.): 65 Assistive Devices: Rolling Walker - Stair Negotiation Stairs: Level of Assistance: Not Tested - Standing Balance Static Stand: Contact Guard Assist Dynamic Stand: Unable to assess/perform - Pain Pain (assessed during therapy session): 4 Management Techniques: Position Change Comment: in R knee, R hand(digits) - Insight/Carryover Insight/Carryover: Good - Patient/Family Education Comment: -ongoing fpr splint checks/managment. -adls.functional transfers/ mobilty training. -RUE HEP/ROM exercises and stretches to increase ROM - Assessment/Plan Assessment: Pt is a 76 year old female with dx; Acute CVA. Precautions: w/c & bed alarms fall prevention, cardiac, aspiration precautions(nectar/purree diet) . Pt limited by impaired overall endurance, impaired RUE/RLE strength, impaired postural control, impaired memory, impaired overall endurance/activity tolerance...which impact on performance of self care, functional transfers/ mobility. Pt will continue skilled OT to improve overall function/safety in self care, functional transfers/mobility and Iadls, + caregiver education, DME needs assessment. Pt will continue wearing R resting hand spint for positioning R wrist/digits, prevention of further contractures. Pt demonstrates improvements in adls, functional transfers/mobility, R digits ROM and will continue to benefit from OT/rehab services to maxmize overall function for safe transition home following caregiver ed, DME needs assessment - Goals Timeframe: 1 week Goals: -Supervision for Upper body adls. -Min assist and verbal cues for lower body self with assistive devices. -Supervision for bed, commode, w/c, cahir and other surface trasfers with RW prn. -I after setup for feeding. -I after setup grooming/seated - Provider Therapist: derik License Number: [id number] Occupational Therapy - Arousal/Attention/Orientation Level of Consciousness: Awake, Alert, Forgetful Patient Orientation: Person - ADL/IADL Self Feeding: Supervision, Verbal Cues, Set-up Help Grooming: Supervision, Verbal Cues, Set-up Help Bathing-Upper Extremity: Verbal Cues, Set-up Help, Minimal Assistance Bathing-Lower Extremity: Verbal Cues, Set-up Help, Moderate Assistance Dressing-Upper Extremity: Verbal Cues, Set-up Help, Minimal Assistance Dressing-Lower Extremity: Verbal Cues, Set-up Help, Moderate Assistance - Sitting Balance Static Sitting: Supervision Dynamic Sitting: Contact Guard Assist Comment: at edge of bed - Transfers Wheelchair to Bed Transfers: Set-up Help, Contact Guard, Minimal Assistance Toilet Transfers: Verbal Cues, Set-up Help, Contact Guard - Wheelchair Management Level of Assistance: Dependent Distance (ft.): 0 - Upper Extremity Status Right Upper Extremity Comment: impaired MP/IP extension , but able to use as gross assist in bimanual tasks. AROM in R shoulder, elbow, forearm, wrsit WFLS.. strength 3+/5 Left Upper Extremity Comment: AROM is WFLS - Pain Pain (assessed during therapy session): 4 Alleviating Techniques: Position Change Comment: in R knee, R hand(digits) - Insight/Carryover Insight/Carryover: Good - Patient/Family Education Comment: -ongoing fpr splint checks/managment. -adls.functional transfers/ mobilty training. -RUE HEP/ROM exercises and stretches to increase ROM - Assessment/Plan Assessment: Pt is a 76 year old female with dx; Acute CVA. Precautions: w/c & bed alarms fall prevention, cardiac, aspiration precautions(nectar/purree diet) . Pt limited by impaired overall endurance, impaired RUE/RLE strength, impaired postural control, impaired memory, impaired overall endurance/activity tolerance...which impact on performance of self care, functional transfers/ mobility. Pt will continue skilled OT to improve overall function/safety in self care, functional transfers/mobility and Iadls, + caregiver education, DME needs assessment. Pt will continue wearing R resting hand spint for positioning R wrist/digits, prevention of further contractures. Pt demonstrates improvements in adls, functional transfers/mobility, R digits ROM and will continue to benefit from OT/rehab services to maxmize overall function for safe transition home following caregiver ed, DME needs assessment - Goals Timeframe: 1 week Goals: -Supervision for Upper body adls. -Min assist and verbal cues for lower body self with assistive devices. -Supervision for bed, commode, w/c, cahir and other surface trasfers with RW prn. -I after setup for feeding. -I after setup grooming/seated - Provider Therapist: DINAH Hagen/Thor License Number: [id number] Speech Therapy - Consult Information Patient on Program: Yes Medical Diagnosis: CVA Treatment Diagnosis: mild cogntive-linguistic deficits - Assessment Problem Solving Impairment: Mild Comment: mild reasoning deficits Memory Impairment: Moderate Comment: moderate short term memory deficits - Plan Assessment: Pt is a 76 year old female with dx; Acute CVA. Precautions: w/c & bed alarms fall prevention, cardiac, aspiration precautions(nectar/purree diet) . Pt limited by impaired overall endurance, impaired RUE/RLE strength, impaired postural control, impaired memory, impaired overall endurance/activity tolerance...which impact on performance of self care, functional transfers/ mobility. Pt will continue skilled OT to improve overall function/safety in self care, functional transfers/mobility and Iadls, + caregiver education, DME needs assessment. Pt will continue wearing R resting hand spint for positioning R wrist/digits, prevention of further contractures. Pt demonstrates improvements in adls, functional transfers/mobility, R digits ROM and will continue to benefit from OT/rehab services to maxmize overall function for safe transition home following caregiver ed, DME needs assessment - Provider Therapist: Vaishali Aguilar License Number: [id number] Recreational Therapy - Participation Participation: Participates in Individual and/or Group Sessions - Attendance Attendance: 3-5 times per week - Activities Leisure Activities: Cards and Games - Socialization Level of Socialization: Initiates/interacts freely with care givers and peer - Diversional Time Diversional Time: television - Assessment Assessment/Plan: Pt is a 76 year old female with dx; Acute CVA. Precautions: w/ c & bed alarms fall prevention, cardiac, aspiration precautions(nectar/purree diet). Pt limited by impaired overall endurance, impaired RUE/RLE strength, impaired postural control, impaired memory, impaired overall endurance/activity tolerance...which impact on performance of self care, functional transfers/ mobility. Pt will continue skilled OT to improve overall function/safety in self care, functional transfers/mobility and Iadls, + caregiver education, DME needs assessment. Pt will continue wearing R resting hand spint for positioning R wrist/digits, prevention of further contractures. Pt demonstrates improvements in adls, functional transfers/mobility, R digits ROM and will continue to benefit from OT/rehab services to maxmize overall function for safe transition home following caregiver ed, DME needs assessment - Provider Therapist: Lidia Adrian, [employer]ATER #[id number] Nutrition - Current Diet Current Diet/ Supplement/ Feedings: Moderate consistent CHO heart healthy diet - Appetite Percent Meal Consumed: 50-74% - Comments Comments: Safety, post CVA care - Assessment/Goals/Time Frame Assessment/Goals/Time Frame: Safety - Provider Provider: Pippa Erickson RD Case Management - Psychosocial Assessment Support Systems: Laila ([facility])- [phone] Psychological Interventions/Needs: Patient is alert and oriented x3 and able to verbalize needs. Discharge Concerns: Patient currently requiring mod-max A for bed mobility, transfers and gait Patient/Family Meeting: CM met with patient and rehab team Intervention/Goal/Outcome:: 1. Goal: Home with VNS and 24 hour supervision vs [facility]IM? 2. Patient to be reteamed next week for most appropriate discharge needs and plan and progress. OT and ST eval TBA this afternoon. - Discharge Plan Discharge Plan: Home with services, Subacute care - Provider Provider: HERB Mckinley, BIOLOGY SPECIALIST License Number: [id number] Rehabilitation Plan - Treatment Plan Treatment Plan: Physical Therapy, Occupational Therapy, Speech, Dietary, Patient /Family Education - Discharge Plan Estimated Date of Discharge: 01/09/17 Discharge to: Home
--- NOTE | 2016-12-24 16:17 | CP.PCM.PN ---
Subjective - Date & Time of Evaluation Date of Evaluation: 12/24/16 Time of Evaluation: 16:30 Objective - Vital Signs/Intake and Output Vital Signs (last 24 hours): Temp Pulse Resp BP Pulse Ox 97.7 F 87 20 156/80 H 97 12/24/16 09:10 12/24/16 09:10 12/24/16 09:10 12/24/16 09:10 12/24/16 09:10 - Medications Medications: Current Medications Acetaminophen (Tylenol 325mg Tab) 650 mg PO Q6 PRN PRN Reason: pain 4-10 Aspirin (Aspirin Chewable) 81 mg PO DAILY [facility] Last Admin: 12/24/16 09:07 Dose: 81 mg Atorvastatin Calcium (Lipitor) 20 mg PO HS [facility] Last Admin: 12/23/16 21:27 Dose: 20 mg Clopidogrel Bisulfate (Plavix) 75 mg PO DAILY [facility] Last Admin: 12/24/16 09:07 Dose: 75 mg Enoxaparin Sodium (Lovenox) 40 mg SC DAILY [facility] PRN Reason: Protocol Last Admin: 12/24/16 09:07 Dose: 40 mg Insulin Human Lispro (Humalog) 0 units SC 0630,2100 [facility] PRN Reason: Protocol Last Admin: 12/24/16 07:00 Dose: Not Given Pantoprazole Sodium (Protonix Ec Tab) 40 mg PO DAILY [facility] Last Admin: 12/24/16 09:07 Dose: 40 mg Valsartan (Diovan) 320 mg PO DAILY [facility] Last Admin: 12/24/16 09:07 Dose: 320 mg - Labs Labs: 12/23/16 06:00 12/17/16 05:25 PT 11.4 Seconds (9.8-13.1) 12/17/16 05:25 INR 1.1 (0.9-1.2) 12/17/16 05:25 APTT 30.6 Seconds (25.6-37.1) 12/17/16 05:25
--- NOTE | 2016-12-24 17:06 | CP.PCM.PN ---
Subjective - Date & Time of Evaluation Date of Evaluation: 12/24/16 Time of Evaluation: 17:06 - Subjective Subjective: Patient seen in room denies sob/cp doing ok flat affect continues to make gains excellent acute rehab candidate Objective - Vital Signs/Intake and Output Vital Signs (last 24 hours): Temp Pulse Resp BP Pulse Ox 97.7 F 87 20 156/80 H 97 12/24/16 09:10 12/24/16 09:10 12/24/16 09:10 12/24/16 09:10 12/24/16 09:10 - Medications Medications: Current Medications Acetaminophen (Tylenol 325mg Tab) 650 mg PO Q6 PRN PRN Reason: pain 4-10 Aspirin (Aspirin Chewable) 81 mg PO DAILY [facility] Last Admin: 12/24/16 09:07 Dose: 81 mg Atorvastatin Calcium (Lipitor) 20 mg PO HS [facility] Last Admin: 12/23/16 21:27 Dose: 20 mg Clopidogrel Bisulfate (Plavix) 75 mg PO DAILY [facility] Last Admin: 12/24/16 09:07 Dose: 75 mg Enoxaparin Sodium (Lovenox) 40 mg SC DAILY [facility] PRN Reason: Protocol Last Admin: 12/24/16 09:07 Dose: 40 mg Insulin Human Lispro (Humalog) 0 units SC 0630,2100 [facility] PRN Reason: Protocol Last Admin: 12/24/16 07:00 Dose: Not Given Pantoprazole Sodium (Protonix Ec Tab) 40 mg PO DAILY [facility] Last Admin: 12/24/16 09:07 Dose: 40 mg Valsartan (Diovan) 320 mg PO DAILY [facility] Last Admin: 12/24/16 09:07 Dose: 320 mg - Labs Labs: 12/23/16 06:00 12/17/16 05:25 PT 11.4 Seconds (9.8-13.1) 12/17/16 05:25 INR 1.1 (0.9-1.2) 12/17/16 05:25 APTT 30.6 Seconds (25.6-37.1) 12/17/16 05:25
[2016-12-25] MEDS: Insulin Lispro (humaLOG) 100 Units/ml Inj SC SCH ×2 (07:00→21:49)
[2016-12-25] MEDS: Pantoprazole 40 mg EC Tab PO SCH (09:17)
[2016-12-25] MEDS: Enoxaparin 40 mg Syringe SC SCH (09:17)
--- NOTE | 2016-12-25 19:09 | CP.PCM.PN ---
Subjective - Date & Time of Evaluation Date of Evaluation: 12/25/16 Time of Evaluation: 19:09 - Subjective Subjective: Patient seen in room denies sob/cp working hard in PT/OT notes improvements denies constipation and has a good PO intake continue current care Objective - Vital Signs/Intake and Output Vital Signs (last 24 hours): Temp Pulse Resp BP Pulse Ox 97.5 F L 62 21 178/91 H 97 12/25/16 09:55 12/25/16 09:55 12/25/16 09:55 12/25/16 09:55 12/25/16 09:55 - Medications Medications: Current Medications Acetaminophen (Tylenol 325mg Tab) 650 mg PO Q6 PRN PRN Reason: pain 4-10 Aspirin (Aspirin Chewable) 81 mg PO DAILY [facility] Last Admin: 12/25/16 09:16 Dose: 81 mg Atorvastatin Calcium (Lipitor) 20 mg PO HS [facility] Last Admin: 12/24/16 21:06 Dose: 20 mg Clopidogrel Bisulfate (Plavix) 75 mg PO DAILY [facility] Last Admin: 12/25/16 09:16 Dose: 75 mg Enoxaparin Sodium (Lovenox) 40 mg SC DAILY [facility] PRN Reason: Protocol Last Admin: 12/25/16 09:17 Dose: 40 mg Insulin Human Lispro (Humalog) 0 units SC 0630,2100 [facility] PRN Reason: Protocol Last Admin: 12/25/16 07:00 Dose: Not Given Pantoprazole Sodium (Protonix Ec Tab) 40 mg PO DAILY [facility] Last Admin: 12/25/16 09:17 Dose: 40 mg Valsartan (Diovan) 320 mg PO DAILY [facility] Last Admin: 12/25/16 09:17 Dose: 320 mg - Labs Labs: 12/23/16 06:00 12/17/16 05:25 PT 11.4 Seconds (9.8-13.1) 12/17/16 05:25 INR 1.1 (0.9-1.2) 12/17/16 05:25 APTT 30.6 Seconds (25.6-37.1) 12/17/16 05:25
[2016-12-26] MEDS: Insulin Lispro (humaLOG) 100 Units/ml Inj SC SCH ×2 (07:22→21:35)
[2016-12-26 07:30] LABS: HEMATOCRIT 33.7 % (34.0-47.0); MEAN CELL VOLUME 89.1 fl (81.0-99.0); MEAN CORPUSCULAR HGB CONC 32.5 g/dL (33.0-37.0); RED CELL DISTRIBUTION WIDTH 13.7 % (11.5-14.5); WHITE BLOOD COUNT 11.4 K/uL (4.8-10.8)
[2016-12-26] MEDS: Pantoprazole 40 mg EC Tab PO SCH (08:07)
[2016-12-26] MEDS: Enoxaparin 40 mg Syringe SC SCH (08:08)
--- NOTE | 2016-12-26 23:46 | CP.PCM.PN ---
Subjective - Date & Time of Evaluation Date of Evaluation: 12/26/16 Time of Evaluation: 15:15 Objective - Vital Signs/Intake and Output Vital Signs (last 24 hours): Temp Pulse Resp BP Pulse Ox 97.9 F 74 20 150/89 96 12/26/16 20:15 12/26/16 20:15 12/26/16 20:15 12/26/16 20:15 12/26/16 20:15 - Medications Medications: Current Medications Acetaminophen (Tylenol 325mg Tab) 650 mg PO Q6 PRN PRN Reason: pain 4-10 Aspirin (Aspirin Chewable) 81 mg PO DAILY [facility] Last Admin: 12/26/16 08:08 Dose: 81 mg Atorvastatin Calcium (Lipitor) 20 mg PO HS [facility] Last Admin: 12/26/16 21:27 Dose: 20 mg Clopidogrel Bisulfate (Plavix) 75 mg PO DAILY [facility] Last Admin: 12/26/16 08:07 Dose: 75 mg Enoxaparin Sodium (Lovenox) 40 mg SC DAILY [facility] PRN Reason: Protocol Last Admin: 12/26/16 08:08 Dose: 40 mg Insulin Human Lispro (Humalog) 0 units SC 0630,2100 [facility] PRN Reason: Protocol Last Admin: 12/26/16 21:35 Dose: Not Given Pantoprazole Sodium (Protonix Ec Tab) 40 mg PO DAILY [facility] Last Admin: 12/26/16 08:07 Dose: 40 mg Valsartan (Diovan) 320 mg PO DAILY [facility] Last Admin: 12/26/16 08:07 Dose: 320 mg - Labs Labs: 12/26/16 06:30 12/17/16 05:25 PT 11.4 Seconds (9.8-13.1) 12/17/16 05:25 INR 1.1 (0.9-1.2) 12/17/16 05:25 APTT 30.6 Seconds (25.6-37.1) 12/17/16 05:25
[2016-12-27] MEDS: Insulin Lispro (humaLOG) 100 Units/ml Inj SC SCH ×2 (07:18→21:58)
--- NOTE | 2016-12-27 07:59 | CP.PCM.CON ---
History of Present Illness - History of Present Illness History of Present Illness: Pt seen for supportive therapy 7:40_7:58. Pt discussed improved mood with improved status, and mobility. Pt less tearful, depression reduced, anxiety reduced, pt spoke of looking forward to continued gains. Pt adjusting increasingly well. 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; denied any aphasia - HEENT Hx HEENT Problems: Yes (c/o of blurry vision (but not wearing any glasses)) - ENDOCRINE/METABOLIC Hx Endocrine Disorders: Yes Hx Diabetes Mellitus Type 2: Yes - HEMATOLOGICAL/ONCOLOGICAL Hx AIDS: No Hx Human Immunodeficiency Virus (HIV): No - MUSCULOSKELETAL/RHEUMATOLOGICAL Hx Falls: Yes (12/11/16) - PSYCHIATRIC Hx Substance Use: No - SURGICAL HISTORY Hx Hysterectomy: Yes ("Years ago") - ANESTHESIA Hx Anesthesia: Yes Hx Anesthesia Reactions: No Hx Malignant Hyperthermia: No Has any member of the family had a problem w/ anesthesia?: No Meds Allergies/Adverse Reactions: Allergies Allergy/AdvReac Type Severity Reaction Status Date / Time No Known Allergies Allergy Verified 12/16/16 19:13 - Medications Medications: Current Medications Acetaminophen (Tylenol 325mg Tab) 650 mg PO Q6 PRN PRN Reason: pain 4-10 Aspirin (Aspirin Chewable) 81 mg PO DAILY [facility] Last Admin: 12/26/16 08:08 Dose: 81 mg Atorvastatin Calcium (Lipitor) 20 mg PO HS [facility] Last Admin: 12/26/16 21:27 Dose: 20 mg Clopidogrel Bisulfate (Plavix) 75 mg PO DAILY [facility] Last Admin: 12/26/16 08:07 Dose: 75 mg Enoxaparin Sodium (Lovenox) 40 mg SC DAILY [facility] PRN Reason: Protocol Last Admin: 12/26/16 08:08 Dose: 40 mg Insulin Human Lispro (Humalog) 0 units SC 0630,2100 [facility] PRN Reason: Protocol Last Admin: 12/27/16 07:18 Dose: Not Given Pantoprazole Sodium (Protonix Ec Tab) 40 mg PO DAILY [facility] Last Admin: 12/26/16 08:07 Dose: 40 mg Valsartan (Diovan) 320 mg PO DAILY [facility] Last Admin: 12/26/16 08:07 Dose: 320 mg Results - Vital Signs Recent Vital Signs: Last Vital Signs Temp 97.9 F 12/26/16 20:15 Pulse 74 12/26/16 20:15 Resp 20 12/26/16 20:15 BP 150/89 12/26/16 20:15 Pulse Ox 96 12/26/16 20:15 - Labs Result Diagrams: 12/26/16 06:30 12/17/16 05:25 Labs: Laboratory Results - last 24 hr 12/26/16 12/27/16 20:57 07:13 POC Glucose (mg/dL) 124 H 86
[2016-12-27] MEDS: Enoxaparin 40 mg Syringe SC SCH (08:17)
[2016-12-27] MEDS: Pantoprazole 40 mg EC Tab PO SCH (08:19)
--- NOTE | 2016-12-27 10:40 | CP.PCM.PN ---
Subjective - Date & Time of Evaluation Date of Evaluation: 12/27/16 Time of Evaluation: 10:40 Objective - Vital Signs/Intake and Output Vital Signs (last 24 hours): Temp Pulse Resp BP Pulse Ox 97.9 F 74 20 150/89 96 12/26/16 20:15 12/26/16 20:15 12/26/16 20:15 12/26/16 20:15 12/26/16 20:15 - Medications Medications: Current Medications Acetaminophen (Tylenol 325mg Tab) 650 mg PO Q6 PRN PRN Reason: pain 4-10 Aspirin (Aspirin Chewable) 81 mg PO DAILY [facility] Last Admin: 12/27/16 08:17 Dose: 81 mg Atorvastatin Calcium (Lipitor) 20 mg PO HS [facility] Last Admin: 12/26/16 21:27 Dose: 20 mg Clopidogrel Bisulfate (Plavix) 75 mg PO DAILY [facility] Last Admin: 12/27/16 08:19 Dose: 75 mg Enoxaparin Sodium (Lovenox) 40 mg SC DAILY [facility] PRN Reason: Protocol Last Admin: 12/27/16 08:17 Dose: 40 mg Insulin Human Lispro (Humalog) 0 units SC 0630,2100 [facility] PRN Reason: Protocol Last Admin: 12/27/16 07:18 Dose: Not Given Pantoprazole Sodium (Protonix Ec Tab) 40 mg PO DAILY [facility] Last Admin: 12/27/16 08:19 Dose: 40 mg Valsartan (Diovan) 320 mg PO DAILY [facility] Last Admin: 12/27/16 08:18 Dose: 320 mg - Labs Labs: 12/26/16 06:30 12/17/16 05:25 PT 11.4 Seconds (9.8-13.1) 12/17/16 05:25 INR 1.1 (0.9-1.2) 12/17/16 05:25 APTT 30.6 Seconds (25.6-37.1) 12/17/16 05:25
--- NOTE | 2016-12-27 20:38 | CP.PCM.PN ---
Subjective - Date & Time of Evaluation Date of Evaluation: 12/27/16 Time of Evaluation: 11:00 - Subjective Subjective: no acute complaint at present Objective - Vital Signs/Intake and Output Vital Signs (last 24 hours): Temp Pulse Resp BP Pulse Ox 98.1 F 87 20 137/79 98 12/27/16 20:08 12/27/16 20:08 12/27/16 20:08 12/27/16 20:08 12/27/16 20:08 - Medications Medications: Current Medications Acetaminophen (Tylenol 325mg Tab) 650 mg PO Q6 PRN PRN Reason: pain 4-10 Aspirin (Aspirin Chewable) 81 mg PO DAILY [facility] Last Admin: 12/27/16 08:17 Dose: 81 mg Atorvastatin Calcium (Lipitor) 20 mg PO HS [facility] Last Admin: 12/26/16 21:27 Dose: 20 mg Clopidogrel Bisulfate (Plavix) 75 mg PO DAILY [facility] Last Admin: 12/27/16 08:19 Dose: 75 mg Enoxaparin Sodium (Lovenox) 40 mg SC DAILY [facility] PRN Reason: Protocol Last Admin: 12/27/16 08:17 Dose: 40 mg Insulin Human Lispro (Humalog) 0 units SC 0630,2100 [facility] PRN Reason: Protocol Last Admin: 12/27/16 07:18 Dose: Not Given Pantoprazole Sodium (Protonix Ec Tab) 40 mg PO DAILY [facility] Last Admin: 12/27/16 08:19 Dose: 40 mg Valsartan (Diovan) 320 mg PO DAILY [facility] Last Admin: 12/27/16 08:18 Dose: 320 mg - Labs Labs: 12/26/16 06:30 12/17/16 05:25 PT 11.4 Seconds (9.8-13.1) 12/17/16 05:25 INR 1.1 (0.9-1.2) 12/17/16 05:25 APTT 30.6 Seconds (25.6-37.1) 12/17/16 05:25 - Head Exam Head Exam: ATRAUMATIC, NORMAL INSPECTION, NORMOCEPHALIC - Eye Exam Eye Exam: EOMI, Normal appearance Pupil Exam: NORMAL ACCOMODATION, PERRL - ENT Exam ENT Exam: Mucous Membranes Moist, Normal Exam - Neck Exam Neck Exam: Normal Inspection - Respiratory Exam Respiratory Exam: NORMAL BREATHING PATTERN - Cardiovascular Exam Cardiovascular Exam: REGULAR RHYTHM - GI/Abdominal Exam GI & Abdominal Exam: Normal Bowel Sounds - Rectal Exam Rectal Exam: NORMAL INSPECTION - Exam External exam: NORMAL EXTERNAL EXAM - Extremities Exam Extremities Exam: Normal Inspection - Back Exam Back Exam: NORMAL INSPECTION - Neurological Exam Neurological Exam: Alert, Awake - Psychiatric Exam Psychiatric exam: Normal Affect, Normal Mood - Skin Skin Exam: Normal Color Assessment and Plan - Assessment and Plan (Free Text) Assessment: CVA DM HTN Plan for physical, occupational and rec therapy covering for Dr Garcia
[2016-12-28] MEDS: Insulin Lispro (humaLOG) 100 Units/ml Inj SC SCH ×2 (06:36→21:28)
[2016-12-28] MEDS: Enoxaparin 40 mg Syringe SC SCH (09:16)
[2016-12-28] MEDS: Pantoprazole 40 mg EC Tab PO SCH (09:16)
--- NOTE | 2016-12-28 23:31 | CP.PCM.PN ---
Subjective - Date & Time of Evaluation Date of Evaluation: 12/28/16 Time of Evaluation: 13:05 Objective - Vital Signs/Intake and Output Vital Signs (last 24 hours): Temp Pulse Resp BP Pulse Ox 98.2 F 70 20 151/72 H 98 12/28/16 20:06 12/28/16 20:06 12/28/16 20:06 12/28/16 20:06 12/28/16 20:06 - Medications Medications: Current Medications Acetaminophen (Tylenol 325mg Tab) 650 mg PO Q6 PRN PRN Reason: pain 4-10 Aspirin (Aspirin Chewable) 81 mg PO DAILY [facility] Last Admin: 12/28/16 09:16 Dose: 81 mg Atorvastatin Calcium (Lipitor) 20 mg PO HS [facility] Last Admin: 12/28/16 21:26 Dose: 20 mg Clopidogrel Bisulfate (Plavix) 75 mg PO DAILY [facility] Last Admin: 12/28/16 09:16 Dose: 75 mg Enoxaparin Sodium (Lovenox) 40 mg SC DAILY [facility] PRN Reason: Protocol Insulin Human Lispro (Humalog) 0 units SC 0630,2100 [facility] PRN Reason: Protocol Last Admin: 12/28/16 21:28 Dose: Not Given Pantoprazole Sodium (Protonix Ec Tab) 40 mg PO DAILY [facility] Last Admin: 12/28/16 09:16 Dose: 40 mg Valsartan (Diovan) 320 mg PO DAILY [facility] Last Admin: 12/28/16 09:17 Dose: 320 mg - Labs Labs: 12/26/16 06:30 12/17/16 05:25 PT 11.4 Seconds (9.8-13.1) 12/17/16 05:25 INR 1.1 (0.9-1.2) 12/17/16 05:25 APTT 30.6 Seconds (25.6-37.1) 12/17/16 05:25
[2016-12-29] MEDS: Insulin Lispro (humaLOG) 100 Units/ml Inj SC SCH ×2 (06:27→21:19)
[2016-12-29 08:10] LABS: HEMATOCRIT 33.3 % (34.0-47.0); MEAN CELL VOLUME 89.3 fl (81.0-99.0); MEAN CORPUSCULAR HEMOGLOBIN 29.4 pg (27.0-31.0); MEAN CORPUSCULAR HGB CONC 32.9 g/dL (33.0-37.0); RED CELL DISTRIBUTION WIDTH 14.2 % (11.5-14.5); WHITE BLOOD COUNT 11.6 K/uL (4.8-10.8)
[2016-12-29] MEDS: Enoxaparin 40 mg Syringe SC SCH (08:30)
[2016-12-29] MEDS: Pantoprazole 40 mg EC Tab PO SCH (08:30)
[2016-12-29 08:40] LABS: BLOOD UREA NITROGEN 19 mg/dl (7-17); CALCIUM 9.3 mg/dL (8.4-10.2); CARBON DIOXIDE 32 mmol/L (22-30); CHLORIDE 103 mmol/L (98-107); GFR AFRICAN-AMERICAN > 60; GLUCOSE,RANDOM 86 mg/dL (65-105); POTASSIUM 3.9 MMOL/L (3.6-5.0); SODIUM 139 mmol/l (132-148)
[2016-12-30] MEDS: Insulin Lispro (humaLOG) 100 Units/ml Inj SC SCH ×2 (06:12→21:14)
[2016-12-30] MEDS: Pantoprazole 40 mg EC Tab PO SCH (08:40)
[2016-12-30] MEDS: Enoxaparin 40 mg Syringe SC SCH (08:40)
--- NOTE | 2016-12-30 17:05 | CP.PCM.PN ---
Subjective - Date & Time of Evaluation Date of Evaluation: 12/30/16 Time of Evaluation: 17:05 - Subjective Subjective: Patient seen in the room, doing well improved function now at 90' denies pain still with right HP ELOS 01/09/17 continue current care Objective - Vital Signs/Intake and Output Vital Signs (last 24 hours): Temp Pulse Resp BP Pulse Ox 97.5 F L 70 20 179/85 H 98 12/30/16 09:33 12/30/16 09:33 12/30/16 09:33 12/30/16 09:33 12/30/16 09:33 - Medications Medications: Current Medications Acetaminophen (Tylenol 325mg Tab) 650 mg PO Q6 PRN PRN Reason: pain 4-10 Aspirin (Aspirin Chewable) 81 mg PO DAILY [facility] Last Admin: 12/30/16 08:40 Dose: 81 mg Atorvastatin Calcium (Lipitor) 20 mg PO HS [facility] Last Admin: 12/29/16 21:14 Dose: 20 mg Clopidogrel Bisulfate (Plavix) 75 mg PO DAILY [facility] Last Admin: 12/30/16 08:40 Dose: 75 mg Enoxaparin Sodium (Lovenox) 40 mg SC DAILY [facility] PRN Reason: Protocol Last Admin: 12/30/16 08:40 Dose: 40 mg Insulin Human Lispro (Humalog) 0 units SC 0630,2100 [facility] PRN Reason: Protocol Last Admin: 12/30/16 06:12 Dose: Not Given Pantoprazole Sodium (Protonix Ec Tab) 40 mg PO DAILY [facility] Last Admin: 12/30/16 08:40 Dose: 40 mg Valsartan (Diovan) 320 mg PO DAILY [facility] Last Admin: 12/30/16 08:39 Dose: 320 mg - Labs Labs: 12/29/16 06:00 12/29/16 06:00 PT 11.4 Seconds (9.8-13.1) 12/17/16 05:25 INR 1.1 (0.9-1.2) 12/17/16 05:25 APTT 30.6 Seconds (25.6-37.1) 12/17/16 05:25
--- NOTE | 2016-12-30 23:31 | CP.PCM.PN ---
Subjective - Date & Time of Evaluation Date of Evaluation: 12/30/16 Time of Evaluation: 08:00 Objective - Vital Signs/Intake and Output Vital Signs (last 24 hours): Temp Pulse Resp BP Pulse Ox 97.9 F 70 20 164/87 H 99 12/30/16 20:34 12/30/16 20:34 12/30/16 20:34 12/30/16 20:34 12/30/16 20:34 - Medications Medications: Current Medications Acetaminophen (Tylenol 325mg Tab) 650 mg PO Q6 PRN PRN Reason: pain 4-10 Aspirin (Aspirin Chewable) 81 mg PO DAILY [facility] Last Admin: 12/30/16 08:40 Dose: 81 mg Atorvastatin Calcium (Lipitor) 20 mg PO HS [facility] Last Admin: 12/30/16 21:15 Dose: 20 mg Clopidogrel Bisulfate (Plavix) 75 mg PO DAILY [facility] Last Admin: 12/30/16 08:40 Dose: 75 mg Enoxaparin Sodium (Lovenox) 40 mg SC DAILY [facility] PRN Reason: Protocol Last Admin: 12/30/16 08:40 Dose: 40 mg Insulin Human Lispro (Humalog) 0 units SC 0630,2100 [facility] PRN Reason: Protocol Last Admin: 12/30/16 21:14 Dose: Not Given Pantoprazole Sodium (Protonix Ec Tab) 40 mg PO DAILY [facility] Last Admin: 12/30/16 08:40 Dose: 40 mg Valsartan (Diovan) 320 mg PO DAILY [facility] Last Admin: 12/30/16 08:39 Dose: 320 mg - Labs Labs: 12/29/16 06:00 12/29/16 06:00 PT 11.4 Seconds (9.8-13.1) 12/17/16 05:25 INR 1.1 (0.9-1.2) 12/17/16 05:25 APTT 30.6 Seconds (25.6-37.1) 12/17/16 05:25
[2016-12-31] MEDS: Insulin Lispro (humaLOG) 100 Units/ml Inj SC SCH ×2 (05:59→21:10)
[2016-12-31] MEDS: Enoxaparin 40 mg Syringe SC SCH (08:04)
[2016-12-31] MEDS: Pantoprazole 40 mg EC Tab PO SCH (08:04)
--- NOTE | 2016-12-31 13:22 | PSY.TMCNF ---
Nursing - Vital Signs Vital Signs (Last 8 hours): Vital Signs 12/31/16 12/31/16 09:00 09:15 Temperature 97.3 F L 97.3 F L Pulse Rate 64 64 Respiratory 20 20 Rate Blood Pressure 190/89 H 190/89 H O2 Sat by Pulse 100 Oximetry Pain: 0 - Precautions: Precautions: Fall Prevention, Aspiration - Medications/Other Issues Comment: Needs encouragement to initiate some simple ADL's. - Consults Comment: Dr. Garcia, Dr. Marks(Podiatry), Dr. Stroud - Skin Incision Site: sternal area Dressing Status: Changed Incision: Healing Well Incision Line Treatment: Scant serosanguinous drainage noted; dry dressing change rendered as ordered. - Toileting Toileting: Moderate Assistance - Bladder Management Bladder Pattern: Normal, Incontinent Voiding Method: Toilet, Bedpan, Urinal Bladder Management: Dependent Frequency of Accidents: >5 - Bowel Management Bowel Pattern: Normal Bowel Management: Supervision Frequency of Accidents: 0 - Transfers Transfers: Minimal Assistance - ADL's ADL's: Moderate Assistance - Pain Management Comments: Denies pain - Patient/Family Teaching Comments: CARE POST CVA AND SAFETY PRECAUTIONS - Goals/Time Frame Comments: PER MULTIDISCIPLINARY CARE PLAN GOALS - Provider Provider: PRITI HERMANN RN CRRN Physical Therapy - Bed Mobility Bed Mobility: Verbal Cues, Minimal Assistance - Transfers Wheelchair to Mat: Verbal Cues, Minimal Assistance Sit to Stand: Verbal Cues, Contact Guard - Ambulation Level of Assistance: Supervision, Verbal Cues, Contact Guard Distance (ft.): 90 Assistive Devices: Rolling Walker - Stair Negotiation Stairs: Level of Assistance: Verbal Cues, Minimal Assistance, Moderate Assistance Number of Stairs: 3 Stairs: Assistive Devices: Left Handrail, Right Handrail - Standing Balance Static Stand: Contact Guard Assist Dynamic Stand: Minimal Assistance - Pain Pain (assessed during therapy session): 4 Management Techniques: Position Change Comment: R foot pain - Insight/Carryover Insight/Carryover: Fair - Patient/Family Education Comment: -ongoing fpr splint checks/management. -adls/functional transfers/ mobilty training and w/c management. -RUE HEP/ROM exercises and stretches to increase ROM. -safety strategies, toileting program - Assessment/Plan Assessment: Pt is a 76 year old female with dx: Acute CVA. Precautions: w/c & bed alarms fall prevention, cardiac, aspiration precautions(nectar/purree diet) . Pt limited by impaired overall endurance, impaired RUE/RLE strength, impaired postural control, impaired memory, impaired overall endurance/activity tolerance...which impact on performance of self care, functional transfers/ mobility. Pt will continue skilled OT to improve overall function/safety in self care, functional transfers/mobility and Iadls, + caregiver education, DME needs assessment. Pt will continue wearing R resting hand spint for positioning R wrist/digits, prevention of further contractures. Pt demonstrates continued improvements in adls, functional transfers/mobility, R digits ROM and will continue to benefit from OT/rehab services to maximize overall function for safe transition home following caregiver ed, DME needs assessment. *Recommend toileting program to minimize incontinence. Pt will likely need 24 hour care at home due to physical/cognitive impairments. - Goals Timeframe: 1 week Goals: -I after setup for Upper body self care. -Min assist and verbal cues for lower body self care with assistive devices. -Caregiver to be I assisting/ cueing and guiding pt with adls functional transfers/bed mobility. -Supine<-> sit with CS/Supervision & verbal cues. -Supervision for bed, commode, w/c, chair and other surface transfers with RW prn. -I after setup grooming/seated. -RUE strength to 4-/5 throughout for improved transfers/mobility and self care - Provider License Number: [id number] Occupational Therapy - Arousal/Attention/Orientation Level of Consciousness: Awake, Alert, Forgetful Patient Orientation: Person, Place, Time, Appropriate to Age, Appropriate to Situation - ADL/IADL Self Feeding: Set-up Help Grooming: Supervision, Verbal Cues, Set-up Help Bathing-Upper Extremity: Supervision, Verbal Cues, Set-up Help Bathing-Lower Extremity: Verbal Cues, Set-up Help, Moderate Assistance Dressing-Upper Extremity: Supervision, Verbal Cues, Set-up Help Dressing-Lower Extremity: Verbal Cues, Set-up Help, Minimal Assistance, Moderate Assistance Comment: takes longer than customary - Sitting Balance Static Sitting: Supervision Dynamic Sitting: Contact Guard Assist Comment: at edge of bed - Transfers Wheelchair to Bed Transfers: Supervision, Verbal Cues, Set-up Help, Contact Guard Toilet Transfers: Supervision, Verbal Cues, Contact Guard Comment: Min assist and verbal cuse to/from shower bench - Wheelchair Management Level of Assistance: Minimal Assistance Distance (ft.): 30 - Upper Extremity Status Right Upper Extremity Comment: impaired MP/IP extension , but able to use as gross assist in bimanual tasks. AROM in R shoulder, elbow, forearm, wrsit WFLS.. strength 3+/5 Left Upper Extremity Comment: AROM is WNLS - Pain Pain (assessed during therapy session): 4 Alleviating Techniques: Position Change Comment: R foot pain - Insight/Carryover Insight/Carryover: Fair - Patient/Family Education Comment: -ongoing fpr splint checks/management. -adls/functional transfers/ mobilty training and w/c management. -RUE HEP/ROM exercises and stretches to increase ROM. -safety strategies, toileting program - Assessment/Plan Assessment: Pt is a 76 year old female with dx: Acute CVA. Precautions: w/c & bed alarms fall prevention, cardiac, aspiration precautions(nectar/purree diet) . Pt limited by impaired overall endurance, impaired RUE/RLE strength, impaired postural control, impaired memory, impaired overall endurance/activity tolerance...which impact on performance of self care, functional transfers/ mobility. Pt will continue skilled OT to improve overall function/safety in self care, functional transfers/mobility and Iadls, + caregiver education, DME needs assessment. Pt will continue wearing R resting hand spint for positioning R wrist/digits, prevention of further contractures. Pt demonstrates continued improvements in adls, functional transfers/mobility, R digits ROM and will continue to benefit from OT/rehab services to maximize overall function for safe transition home following caregiver ed, DME needs assessment. *Recommend toileting program to minimize incontinence. Pt will likely need 24 hour care at home due to physical/cognitive impairments. - Goals Timeframe: 1 week Goals: -I after setup for Upper body self care. -Min assist and verbal cues for lower body self care with assistive devices. -Caregiver to be I assisting/ cueing and guiding pt with adls functional transfers/bed mobility. -Supine<-> sit with CS/Supervision & verbal cues. -Supervision for bed, commode, w/c, chair and other surface transfers with RW prn. -I after setup grooming/seated. -RUE strength to 4-/5 throughout for improved transfers/mobility and self care - Provider Therapist: DINAH Hagen/Thor License Number: [id number] Speech Therapy - Consult Information Patient on Program: Yes Medical Diagnosis: CVA Treatment Diagnosis: mild cogntive-linguistic deficits - Assessment Problem Solving Impairment: Mild Memory Impairment: Mild - Plan Assessment: Pt is a 76 year old female with dx: Acute CVA. Precautions: w/c & bed alarms fall prevention, cardiac, aspiration precautions(nectar/purree diet) . Pt limited by impaired overall endurance, impaired RUE/RLE strength, impaired postural control, impaired memory, impaired overall endurance/activity tolerance...which impact on performance of self care, functional transfers/ mobility. Pt will continue skilled OT to improve overall function/safety in self care, functional transfers/mobility and Iadls, + caregiver education, DME needs assessment. Pt will continue wearing R resting hand spint for positioning R wrist/digits, prevention of further contractures. Pt demonstrates continued improvements in adls, functional transfers/mobility, R digits ROM and will continue to benefit from OT/rehab services to maximize overall function for safe transition home following caregiver ed, DME needs assessment. *Recommend toileting program to minimize incontinence. Pt will likely need 24 hour care at home due to physical/cognitive impairments. - Provider Therapist: Yisel Thomas License Number: [id number] Recreational Therapy - Participation Participation: Participates in Individual and/or Group Sessions - Attendance Attendance: 3-5 times per week - Activities Leisure Activities: Cards and Games - Socialization Level of Socialization: Initiates/interacts freely with care givers and peer - Diversional Time Diversional Time: television - Assessment Assessment/Plan: Pt is a 76 year old female with dx: Acute CVA. Precautions: w/ c & bed alarms fall prevention, cardiac, aspiration precautions(nectar/purree diet). Pt limited by impaired overall endurance, impaired RUE/RLE strength, impaired postural control, impaired memory, impaired overall endurance/activity tolerance...which impact on performance of self care, functional transfers/ mobility. Pt will continue skilled OT to improve overall function/safety in self care, functional transfers/mobility and Iadls, + caregiver education, DME needs assessment. Pt will continue wearing R resting hand spint for positioning R wrist/digits, prevention of further contractures. Pt demonstrates continued improvements in adls, functional transfers/mobility, R digits ROM and will continue to benefit from OT/rehab services to maximize overall function for safe transition home following caregiver ed, DME needs assessment. *Recommend toileting program to minimize incontinence. Pt will likely need 24 hour care at home due to physical/cognitive impairments. - Provider Therapist: Lidia Adrian, [employer] #[id number] Nutrition - Current Diet Current Diet/ Supplement/ Feedings: Moderate consistent CHO Heart Healthy - Appetite Percent Meal Consumed: 75-100% - Comments Comments: CARE POST CVA AND SAFETY PRECAUTIONS - Assessment/Goals/Time Frame Assessment/Goals/Time Frame: Needs encouragement to initiate some simple ADL's. - Provider Provider: Pippa Erickson RD Case Management - Psychosocial Assessment Support Systems: Lives with supportive family Psychological Interventions/Needs: Alert and Oriented motivated to participate in all therapy treatmets Discharge Concerns: Lives with daught who works during the day but will assist in the evening/night time hours. Stairs to negoiate Patient/Family Meeting: Met with patient goal is for home with daughter on Intervention/Goal/Outcome:: Supervision - Discharge Plan Discharge Plan: Home with significant other/family, Home with services - Provider Provider: Caroline Bryant RNmanager requirements Plan - Discharge Plan Estimated Date of Discharge: 01/09/17 Discharge to: Home
--- NOTE | 2016-12-31 18:54 | CP.PCM.PN ---
Subjective - Date & Time of Evaluation Date of Evaluation: 12/31/16 Time of Evaluation: 18:52 - Subjective Subjective: patient seen in room discussed with her at length d/c plans and she will need someone in to help her in the afternoon for toileting and food for 1-2 hours otherwise she can be alone we will really focus on transfers over the next 9 days until discharge no pain at this point continue current care Objective - Vital Signs/Intake and Output Vital Signs (last 24 hours): Temp Pulse Resp BP Pulse Ox 97.3 F L 64 20 190/89 H 100 12/31/16 09:15 12/31/16 09:15 12/31/16 09:15 12/31/16 09:15 12/31/16 09:15 - Medications Medications: Current Medications Acetaminophen (Tylenol 325mg Tab) 650 mg PO Q6 PRN PRN Reason: pain 4-10 Aspirin (Aspirin Chewable) 81 mg PO DAILY [facility] Last Admin: 12/31/16 08:04 Dose: 81 mg Atorvastatin Calcium (Lipitor) 20 mg PO HS [facility] Last Admin: 12/30/16 21:15 Dose: 20 mg Clopidogrel Bisulfate (Plavix) 75 mg PO DAILY [facility] Last Admin: 12/31/16 08:04 Dose: 75 mg Enoxaparin Sodium (Lovenox) 40 mg SC DAILY [facility] PRN Reason: Protocol Last Admin: 12/31/16 08:04 Dose: 40 mg Insulin Human Lispro (Humalog) 0 units SC 0630,2100 [facility] PRN Reason: Protocol Last Admin: 12/31/16 05:59 Dose: Not Given Pantoprazole Sodium (Protonix Ec Tab) 40 mg PO DAILY [facility] Last Admin: 12/31/16 08:04 Dose: 40 mg Valsartan (Diovan) 320 mg PO DAILY [facility] Last Admin: 12/31/16 08:03 Dose: 320 mg - Labs Labs: 12/29/16 06:00 12/29/16 06:00 PT 11.4 Seconds (9.8-13.1) 12/17/16 05:25 INR 1.1 (0.9-1.2) 12/17/16 05:25 APTT 30.6 Seconds (25.6-37.1) 12/17/16 05:25
[2017-01-01] MEDS: Insulin Lispro (humaLOG) 100 Units/ml Inj SC SCH ×2 (05:41→21:00)
[2017-01-01 08:00] LABS: HEMATOCRIT 32.7 % (34.0-47.0); MEAN CELL VOLUME 89.6 fl (81.0-99.0); MEAN CORPUSCULAR HEMOGLOBIN 29.5 pg (27.0-31.0); MEAN CORPUSCULAR HGB CONC 32.9 g/dL (33.0-37.0); RED CELL DISTRIBUTION WIDTH 14.1 % (11.5-14.5); WHITE BLOOD COUNT 10.9 K/uL (4.8-10.8)
[2017-01-01 08:23] LABS: BLOOD UREA NITROGEN 19 mg/dl (7-17); CALCIUM 9.3 mg/dL (8.4-10.2); CARBON DIOXIDE 29 mmol/L (22-30); CHLORIDE 103 mmol/L (98-107); GFR AFRICAN-AMERICAN > 60; GLUCOSE,RANDOM 82 mg/dL (65-105); POTASSIUM 4.5 MMOL/L (3.6-5.0); SODIUM 140 mmol/l (132-148)
[2017-01-01] MEDS: Enoxaparin 40 mg Syringe SC SCH (09:22)
[2017-01-01] MEDS: Pantoprazole 40 mg EC Tab PO SCH (09:23)
--- NOTE | 2017-01-01 14:42 | CP.PCM.PN ---
Subjective - Date & Time of Evaluation Date of Evaluation: 01/01/17 Time of Evaluation: 08:00 - Subjective Subjective: no acute complaints at present Objective - Vital Signs/Intake and Output Vital Signs (last 24 hours): Temp Pulse Resp BP Pulse Ox 97.9 F 76 18 157/76 H 97 12/31/16 21:18 01/01/17 08:26 01/01/17 08:26 01/01/17 08:26 12/31/16 21:18 - Medications Medications: Current Medications Acetaminophen (Tylenol 325mg Tab) 650 mg PO Q6 PRN PRN Reason: pain 4-10 Aspirin (Aspirin Chewable) 81 mg PO DAILY [facility] Last Admin: 01/01/17 09:23 Dose: 81 mg Atorvastatin Calcium (Lipitor) 20 mg PO HS [facility] Last Admin: 12/31/16 21:06 Dose: 20 mg Clopidogrel Bisulfate (Plavix) 75 mg PO DAILY [facility] Last Admin: 01/01/17 09:23 Dose: 75 mg Enoxaparin Sodium (Lovenox) 40 mg SC DAILY [facility] PRN Reason: Protocol Last Admin: 01/01/17 09:22 Dose: 40 mg Insulin Human Lispro (Humalog) 0 units SC 0630,2100 [facility] PRN Reason: Protocol Last Admin: 01/01/17 05:41 Dose: Not Given Pantoprazole Sodium (Protonix Ec Tab) 40 mg PO DAILY [facility] Last Admin: 01/01/17 09:23 Dose: 40 mg Valsartan (Diovan) 320 mg PO DAILY [facility] Last Admin: 01/01/17 09:23 Dose: 320 mg - Labs Labs: 01/01/17 07:00 01/01/17 07:00 PT 11.4 Seconds (9.8-13.1) 12/17/16 05:25 INR 1.1 (0.9-1.2) 12/17/16 05:25 APTT 30.6 Seconds (25.6-37.1) 12/17/16 05:25 - Head Exam Head Exam: ATRAUMATIC, NORMAL INSPECTION, NORMOCEPHALIC - Eye Exam Eye Exam: EOMI, Normal appearance, PERRL Pupil Exam: NORMAL ACCOMODATION - ENT Exam ENT Exam: Mucous Membranes Moist, Normal Exam - Neck Exam Neck Exam: Normal Inspection - Respiratory Exam Respiratory Exam: NORMAL BREATHING PATTERN - Cardiovascular Exam Cardiovascular Exam: REGULAR RHYTHM - GI/Abdominal Exam GI & Abdominal Exam: Normal Bowel Sounds - Rectal Exam Rectal Exam: NORMAL INSPECTION - Exam External exam: NORMAL EXTERNAL EXAM - Extremities Exam Extremities Exam: Normal Capillary Refill, Normal Inspection - Back Exam Back Exam: NORMAL INSPECTION - Neurological Exam Neurological Exam: Alert, Awake Neuro motor strength exam: Left Upper Extremity: 3, Right Upper Extremity: 3, Left Lower Extremity: 3, Right Lower Extremity: 3 - Psychiatric Exam Psychiatric exam: Normal Affect, Normal Mood - Skin Skin Exam: Dry, Intact Assessment and Plan - Assessment and Plan (Free Text) Assessment: Cerebrovascular accident Pt. ot, rec covering for Dr. Garcia
[2017-01-02] MEDS: Insulin Lispro (humaLOG) 100 Units/ml Inj SC SCH ×2 (05:57→21:48)
[2017-01-02] MEDS: Pantoprazole 40 mg EC Tab PO SCH (08:22)
[2017-01-02] MEDS: Enoxaparin 40 mg Syringe SC SCH (08:22)
--- NOTE | 2017-01-02 13:40 | CP.PCM.PN ---
Subjective - Date & Time of Evaluation Date of Evaluation: 01/02/17 Time of Evaluation: 08:00 - Subjective Subjective: no acute complaints at present Objective - Vital Signs/Intake and Output Vital Signs (last 24 hours): Temp Pulse Resp BP Pulse Ox 98.1 F 67 19 163/81 H 97 01/02/17 08:24 01/02/17 08:24 01/02/17 08:24 01/02/17 08:24 01/02/17 08:24 - Medications Medications: Current Medications Acetaminophen (Tylenol 325mg Tab) 650 mg PO Q6 PRN PRN Reason: pain 4-10 Aspirin (Aspirin Chewable) 81 mg PO DAILY [facility] Last Admin: 01/02/17 08:21 Dose: 81 mg Atorvastatin Calcium (Lipitor) 20 mg PO HS [facility] Last Admin: 01/01/17 21:32 Dose: 20 mg Clopidogrel Bisulfate (Plavix) 75 mg PO DAILY [facility] Last Admin: 01/02/17 08:22 Dose: 75 mg Enoxaparin Sodium (Lovenox) 40 mg SC DAILY [facility] PRN Reason: Protocol Last Admin: 01/02/17 08:22 Dose: 40 mg Insulin Human Lispro (Humalog) 0 units SC 0630,2100 [facility] PRN Reason: Protocol Last Admin: 01/02/17 05:57 Dose: Not Given Pantoprazole Sodium (Protonix Ec Tab) 40 mg PO DAILY [facility] Last Admin: 01/02/17 08:22 Dose: 40 mg Valsartan (Diovan) 320 mg PO DAILY [facility] Last Admin: 01/02/17 08:21 Dose: 320 mg - Labs Labs: 01/01/17 07:00 01/01/17 07:00 PT 11.4 Seconds (9.8-13.1) 12/17/16 05:25 INR 1.1 (0.9-1.2) 12/17/16 05:25 APTT 30.6 Seconds (25.6-37.1) 12/17/16 05:25 - Head Exam Head Exam: ATRAUMATIC, NORMAL INSPECTION, NORMOCEPHALIC - Eye Exam Eye Exam: EOMI, Normal appearance, PERRL Pupil Exam: NORMAL ACCOMODATION - ENT Exam ENT Exam: Mucous Membranes Moist, Normal Exam - Neck Exam Neck Exam: Normal Inspection - Respiratory Exam Respiratory Exam: NORMAL BREATHING PATTERN - Cardiovascular Exam Cardiovascular Exam: REGULAR RHYTHM - GI/Abdominal Exam GI & Abdominal Exam: Soft - Rectal Exam Rectal Exam: NORMAL INSPECTION - Exam External exam: NORMAL EXTERNAL EXAM - Extremities Exam Extremities Exam: Normal Capillary Refill - Back Exam Back Exam: NORMAL INSPECTION - Neurological Exam Neurological Exam: Alert, Awake Neuro motor strength exam: Left Upper Extremity: 3, Right Upper Extremity: 3, Left Lower Extremity: 3, Right Lower Extremity: 3 - Psychiatric Exam Psychiatric exam: Normal Affect, Normal Mood - Skin Skin Exam: Dry, Intact Assessment and Plan - Assessment and Plan (Free Text) Assessment: CVa pt, ot rec and speech covering for DR Garcia
[2017-01-03] MEDS: Insulin Lispro (humaLOG) 100 Units/ml Inj SC SCH ×2 (06:41→21:07)
[2017-01-03] MEDS: Enoxaparin 40 mg Syringe SC SCH (08:39)
[2017-01-03] MEDS: Pantoprazole 40 mg EC Tab PO SCH (08:40)
--- NOTE | 2017-01-03 10:05 | CP.PCM.CON ---
History of Present Illness - History of Present Illness History of Present Illness: Pt seen for supportive therapy 7:38-7:55. Pt spoke of continued therapy gains and improved strength. Pt disc decline in depression, decline in anxiety, affect brighter and pt spoke of being cared for/supported. Pt adjusting well. Past Patient History - Past Medical History & Family History Past Medical History?: Yes - Past Social History Smoking Status: Light Smoker < 10 Cigarettes Daily Alcohol: Occasional Drugs: Denies Home Situation {Lives}: With Family - CARDIAC Hx Hypertension: Yes - NEUROLOGICAL Hx Neurological Disorder: Yes HX Cerebrovascular Accident: Yes Other/Comment: - CVA: 1) 12/11/16 & 2) "About 10 years ago" with right residual weakness + left facial drooop; denied any aphasia - HEENT Hx HEENT Problems: Yes (c/o of blurry vision (but not wearing any glasses)) - ENDOCRINE/METABOLIC Hx Endocrine Disorders: Yes Hx Diabetes Mellitus Type 2: Yes - HEMATOLOGICAL/ONCOLOGICAL Hx AIDS: No Hx Human Immunodeficiency Virus (HIV): No - MUSCULOSKELETAL/RHEUMATOLOGICAL Hx Falls: Yes (12/11/16) - PSYCHIATRIC Hx Substance Use: No - SURGICAL HISTORY Hx Hysterectomy: Yes ("Years ago") - ANESTHESIA Hx Anesthesia: Yes Hx Anesthesia Reactions: No Hx Malignant Hyperthermia: No Has any member of the family had a problem w/ anesthesia?: No Meds Allergies/Adverse Reactions: Allergies Allergy/AdvReac Type Severity Reaction Status Date / Time No Known Allergies Allergy Verified 12/16/16 19:13 - Medications Medications: Current Medications Acetaminophen (Tylenol 325mg Tab) 650 mg PO Q6 PRN PRN Reason: pain 4-10 Aspirin (Aspirin Chewable) 81 mg PO DAILY [facility] Last Admin: 01/03/17 08:39 Dose: 81 mg Atorvastatin Calcium (Lipitor) 20 mg PO HS [facility] Last Admin: 01/02/17 21:47 Dose: 20 mg Clopidogrel Bisulfate (Plavix) 75 mg PO DAILY [facility] Last Admin: 01/03/17 08:39 Dose: 75 mg Insulin Human Lispro (Humalog) 0 units SC 0630,2100 [facility] PRN Reason: Protocol Last Admin: 01/03/17 06:41 Dose: Not Given Pantoprazole Sodium (Protonix Ec Tab) 40 mg PO DAILY [facility] Last Admin: 01/03/17 08:40 Dose: 40 mg Valsartan (Diovan) 320 mg PO DAILY [facility] Last Admin: 01/03/17 08:39 Dose: 320 mg Results - Vital Signs Recent Vital Signs: Last Vital Signs Temp 97.9 F 01/03/17 08:01 Pulse 74 01/03/17 08:01 Resp 20 01/03/17 08:01 BP 174/90 H 01/03/17 08:01 Pulse Ox 97 01/03/17 08:01 - Labs Result Diagrams: 01/01/17 07:00 01/01/17 07:00 Labs: Laboratory Results - last 24 hr 01/02/17 01/03/17 20:54 05:45 POC Glucose (mg/dL) 88 86
--- NOTE | 2017-01-03 11:49 | CP.PCM.PN ---
Subjective - Date & Time of Evaluation Date of Evaluation: 12/31/16 Time of Evaluation: 09:40 - Subjective Subjective: Patient is doing well Has no chest pain Has good sleep Has fair appetite Showed improvement with phys therapy Objective - Vital Signs/Intake and Output Vital Signs (last 24 hours): Temp Pulse Resp BP Pulse Ox 97.9 F 74 20 174/90 H 97 01/03/17 08:01 01/03/17 08:01 01/03/17 08:01 01/03/17 08:01 01/03/17 08:01 - Medications Medications: Current Medications Acetaminophen (Tylenol 325mg Tab) 650 mg PO Q6 PRN PRN Reason: pain 4-10 Aspirin (Aspirin Chewable) 81 mg PO DAILY [facility] Last Admin: 01/03/17 08:39 Dose: 81 mg Atorvastatin Calcium (Lipitor) 20 mg PO HS [facility] Last Admin: 01/02/17 21:47 Dose: 20 mg Clopidogrel Bisulfate (Plavix) 75 mg PO DAILY [facility] Last Admin: 01/03/17 08:39 Dose: 75 mg Insulin Human Lispro (Humalog) 0 units SC 0630,2100 [facility] PRN Reason: Protocol Last Admin: 01/03/17 06:41 Dose: Not Given Pantoprazole Sodium (Protonix Ec Tab) 40 mg PO DAILY [facility] Last Admin: 01/03/17 08:40 Dose: 40 mg Valsartan (Diovan) 320 mg PO DAILY [facility] Last Admin: 01/03/17 08:39 Dose: 320 mg - Labs Labs: 01/01/17 07:00 01/01/17 07:00 PT 11.4 Seconds (9.8-13.1) 12/17/16 05:25 INR 1.1 (0.9-1.2) 12/17/16 05:25 APTT 30.6 Seconds (25.6-37.1) 12/17/16 05:25 - Head Exam Head Exam: NORMAL INSPECTION - Eye Exam Eye Exam: Normal appearance - ENT Exam ENT Exam: Mucous Membranes Moist - Respiratory Exam Respiratory Exam: Clear to Ausculation Bilateral - Cardiovascular Exam Cardiovascular Exam: REGULAR RHYTHM - GI/Abdominal Exam GI & Abdominal Exam: Normal Bowel Sounds - Neurological Exam Neurological Exam: Awake - Psychiatric Exam Psychiatric exam: Normal Mood Assessment and Plan (1) CVA (cerebral vascular accident) Status: Acute (2) Gait disturbance, post-stroke Status: Acute (3) Hypertension Status: Acute (4) Diabetes mellitus type 2 in obese Status: Acute - Assessment and Plan (Free Text) Plan: Con tmeds Cont PT Cont tx monitor BP accucheck
--- NOTE | 2017-01-03 11:51 | CP.PCM.PN ---
Subjective - Date & Time of Evaluation Date of Evaluation: 01/01/17 Time of Evaluation: 09:40 - Subjective Subjective: Patient remains stable Doing well with PT Has no chest pain or SOB. Objective - Vital Signs/Intake and Output Vital Signs (last 24 hours): Temp Pulse Resp BP Pulse Ox 97.9 F 74 20 174/90 H 97 01/03/17 08:01 01/03/17 08:01 01/03/17 08:01 01/03/17 08:01 01/03/17 08:01 - Medications Medications: Current Medications Acetaminophen (Tylenol 325mg Tab) 650 mg PO Q6 PRN PRN Reason: pain 4-10 Aspirin (Aspirin Chewable) 81 mg PO DAILY [facility] Last Admin: 01/03/17 08:39 Dose: 81 mg Atorvastatin Calcium (Lipitor) 20 mg PO HS [facility] Last Admin: 01/02/17 21:47 Dose: 20 mg Clopidogrel Bisulfate (Plavix) 75 mg PO DAILY [facility] Last Admin: 01/03/17 08:39 Dose: 75 mg Insulin Human Lispro (Humalog) 0 units SC 0630,2100 [facility] PRN Reason: Protocol Last Admin: 01/03/17 06:41 Dose: Not Given Pantoprazole Sodium (Protonix Ec Tab) 40 mg PO DAILY [facility] Last Admin: 01/03/17 08:40 Dose: 40 mg Valsartan (Diovan) 320 mg PO DAILY [facility] Last Admin: 01/03/17 08:39 Dose: 320 mg - Labs Labs: 01/01/17 07:00 01/01/17 07:00 PT 11.4 Seconds (9.8-13.1) 12/17/16 05:25 INR 1.1 (0.9-1.2) 12/17/16 05:25 APTT 30.6 Seconds (25.6-37.1) 12/17/16 05:25 - Head Exam Head Exam: NORMAL INSPECTION - Eye Exam Eye Exam: Normal appearance - ENT Exam ENT Exam: Mucous Membranes Moist - Respiratory Exam Respiratory Exam: Clear to Ausculation Bilateral - Cardiovascular Exam Cardiovascular Exam: REGULAR RHYTHM - GI/Abdominal Exam GI & Abdominal Exam: Normal Bowel Sounds - Neurological Exam Neurological Exam: Awake, CN II-XII Intact Assessment and Plan (1) CVA (cerebral vascular accident) Status: Acute (2) Diabetes mellitus type 2 in obese Status: Acute (3) Gait disturbance, post-stroke Status: Acute (4) Hypertension Status: Acute - Assessment and Plan (Free Text) Plan: Cont meds Con ttx Cont pT
--- NOTE | 2017-01-03 11:53 | CP.PCM.PN ---
Subjective - Date & Time of Evaluation Date of Evaluation: 01/02/17 Time of Evaluation: 09:30 - Subjective Subjective: Patient remains stable Has no chest pain Has no fever. Objective - Vital Signs/Intake and Output Vital Signs (last 24 hours): Temp Pulse Resp BP Pulse Ox 97.9 F 74 20 174/90 H 97 01/03/17 08:01 01/03/17 08:01 01/03/17 08:01 01/03/17 08:01 01/03/17 08:01 - Medications Medications: Current Medications Acetaminophen (Tylenol 325mg Tab) 650 mg PO Q6 PRN PRN Reason: pain 4-10 Aspirin (Aspirin Chewable) 81 mg PO DAILY [facility] Last Admin: 01/03/17 08:39 Dose: 81 mg Atorvastatin Calcium (Lipitor) 20 mg PO HS [facility] Last Admin: 01/02/17 21:47 Dose: 20 mg Clopidogrel Bisulfate (Plavix) 75 mg PO DAILY [facility] Last Admin: 01/03/17 08:39 Dose: 75 mg Insulin Human Lispro (Humalog) 0 units SC 0630,2100 [facility] PRN Reason: Protocol Last Admin: 01/03/17 06:41 Dose: Not Given Pantoprazole Sodium (Protonix Ec Tab) 40 mg PO DAILY [facility] Last Admin: 01/03/17 08:40 Dose: 40 mg Valsartan (Diovan) 320 mg PO DAILY [facility] Last Admin: 01/03/17 08:39 Dose: 320 mg - Labs Labs: 01/01/17 07:00 01/01/17 07:00 PT 11.4 Seconds (9.8-13.1) 12/17/16 05:25 INR 1.1 (0.9-1.2) 12/17/16 05:25 APTT 30.6 Seconds (25.6-37.1) 12/17/16 05:25 - Head Exam Head Exam: NORMAL INSPECTION - Eye Exam Eye Exam: Normal appearance - ENT Exam ENT Exam: Mucous Membranes Moist - Respiratory Exam Respiratory Exam: Clear to Ausculation Bilateral - Cardiovascular Exam Cardiovascular Exam: REGULAR RHYTHM - GI/Abdominal Exam GI & Abdominal Exam: Normal Bowel Sounds - Neurological Exam Neurological Exam: Awake, Oriented x3 Assessment and Plan (1) Gait disturbance, post-stroke Status: Acute (2) CVA (cerebral vascular accident) Status: Acute (3) Diabetes mellitus type 2 in obese Status: Acute (4) Hypertension Status: Acute - Assessment and Plan (Free Text) Plan: Cont meds Con ttx Cont PT cont meds.
--- NOTE | 2017-01-03 11:54 | CP.PCM.PN ---
Subjective - Date & Time of Evaluation Date of Evaluation: 01/03/17 Time of Evaluation: 11:53 - Subjective Subjective: Patient remains stable Has no chest pain or SOB Afebrile. Objective - Vital Signs/Intake and Output Vital Signs (last 24 hours): Temp Pulse Resp BP Pulse Ox 97.9 F 74 20 174/90 H 97 01/03/17 08:01 01/03/17 08:01 01/03/17 08:01 01/03/17 08:01 01/03/17 08:01 - Medications Medications: Current Medications Acetaminophen (Tylenol 325mg Tab) 650 mg PO Q6 PRN PRN Reason: pain 4-10 Aspirin (Aspirin Chewable) 81 mg PO DAILY [facility] Last Admin: 01/03/17 08:39 Dose: 81 mg Atorvastatin Calcium (Lipitor) 20 mg PO HS [facility] Last Admin: 01/02/17 21:47 Dose: 20 mg Clopidogrel Bisulfate (Plavix) 75 mg PO DAILY [facility] Last Admin: 01/03/17 08:39 Dose: 75 mg Insulin Human Lispro (Humalog) 0 units SC 0630,2100 [facility] PRN Reason: Protocol Last Admin: 01/03/17 06:41 Dose: Not Given Pantoprazole Sodium (Protonix Ec Tab) 40 mg PO DAILY [facility] Last Admin: 01/03/17 08:40 Dose: 40 mg Valsartan (Diovan) 320 mg PO DAILY [facility] Last Admin: 01/03/17 08:39 Dose: 320 mg - Labs Labs: 01/01/17 07:00 01/01/17 07:00 PT 11.4 Seconds (9.8-13.1) 12/17/16 05:25 INR 1.1 (0.9-1.2) 12/17/16 05:25 APTT 30.6 Seconds (25.6-37.1) 12/17/16 05:25 - Head Exam Head Exam: NORMAL INSPECTION - Eye Exam Eye Exam: Normal appearance - ENT Exam ENT Exam: Mucous Membranes Moist - Respiratory Exam Respiratory Exam: Clear to Ausculation Bilateral - Cardiovascular Exam Cardiovascular Exam: REGULAR RHYTHM - GI/Abdominal Exam GI & Abdominal Exam: Normal Bowel Sounds - Neurological Exam Neurological Exam: Awake, Oriented x3 Assessment and Plan (1) Gait disturbance, post-stroke Status: Acute (2) CVA (cerebral vascular accident) Status: Acute (3) Diabetes mellitus type 2 in obese Status: Acute (4) Hypertension Status: Acute - Assessment and Plan (Free Text) Plan: Con tmeds Con ttx Cont PT.
--- NOTE | 2017-01-03 16:03 | CP.PCM.PN ---
Subjective - Date & Time of Evaluation Date of Evaluation: 01/03/17 Time of Evaluation: 16:03 - Subjective Subjective: Patient seen in room losing weight given restricted, appropriate diet ambulating 120' in PT continue current care Objective - Vital Signs/Intake and Output Vital Signs (last 24 hours): Temp Pulse Resp BP Pulse Ox 97.9 F 84 20 174/90 H 96 01/03/17 08:01 01/03/17 08:54 01/03/17 08:01 01/03/17 08:01 01/03/17 08:54 - Medications Medications: Current Medications Acetaminophen (Tylenol 325mg Tab) 650 mg PO Q6 PRN PRN Reason: pain 4-10 Aspirin (Aspirin Chewable) 81 mg PO DAILY [facility] Last Admin: 01/03/17 08:39 Dose: 81 mg Atorvastatin Calcium (Lipitor) 20 mg PO HS [facility] Last Admin: 01/02/17 21:47 Dose: 20 mg Clopidogrel Bisulfate (Plavix) 75 mg PO DAILY [facility] Last Admin: 01/03/17 08:39 Dose: 75 mg Enoxaparin Sodium (Lovenox) 40 mg SC DAILY [facility] PRN Reason: Protocol Insulin Human Lispro (Humalog) 0 units SC 0630,2100 [facility] PRN Reason: Protocol Last Admin: 01/03/17 06:41 Dose: Not Given Pantoprazole Sodium (Protonix Ec Tab) 40 mg PO DAILY [facility] Last Admin: 01/03/17 08:40 Dose: 40 mg Valsartan (Diovan) 320 mg PO DAILY [facility] Last Admin: 01/03/17 08:39 Dose: 320 mg - Labs Labs: 01/01/17 07:00 01/01/17 07:00 PT 11.4 Seconds (9.8-13.1) 12/17/16 05:25 INR 1.1 (0.9-1.2) 12/17/16 05:25 APTT 30.6 Seconds (25.6-37.1) 12/17/16 05:25
[2017-01-04] MEDS: Insulin Lispro (humaLOG) 100 Units/ml Inj SC SCH ×2 (06:18→20:49)
[2017-01-04 07:28] LABS: HEMATOCRIT 32.7 % (34.0-47.0); MEAN CELL VOLUME 89.9 fl (81.0-99.0); MEAN CORPUSCULAR HEMOGLOBIN 29.1 pg (27.0-31.0); MEAN CORPUSCULAR HGB CONC 32.4 g/dL (33.0-37.0); RED CELL DISTRIBUTION WIDTH 13.9 % (11.5-14.5); WHITE BLOOD COUNT 11.4 K/uL (4.8-10.8)
[2017-01-04] MEDS: Pantoprazole 40 mg EC Tab PO SCH (09:09)
[2017-01-04] MEDS: Enoxaparin 40 mg Syringe SC SCH (09:11)
[2017-01-05] MEDS: Insulin Lispro (humaLOG) 100 Units/ml Inj SC SCH ×2 (05:50→20:35)
--- NOTE | 2017-01-05 08:28 | CP.PCM.PN ---
Subjective - Date & Time of Evaluation Date of Evaluation: 01/05/17 Time of Evaluation: 07:55 - Subjective Subjective: Sates feel better. BP up to SBP 170, and was given Amlodpine and also added amlodipine to her daily regimen. otherwise denies dypnea, chest pain or lg swelling. Objective - Vital Signs/Intake and Output Vital Signs (last 24 hours): Temp Pulse Resp BP Pulse Ox 97.7 F 76 20 156/82 H 99 01/04/17 21:30 01/05/17 05:49 01/05/17 05:49 01/05/17 05:49 01/05/17 01:00 - Medications Medications: Current Medications Acetaminophen (Tylenol 325mg Tab) 650 mg PO Q6 PRN PRN Reason: pain 4-10 Amlodipine Besylate (Norvasc) 5 mg PO DAILY [facility] Aspirin (Aspirin Chewable) 81 mg PO DAILY [facility] Last Admin: 01/04/17 09:09 Dose: 81 mg Atorvastatin Calcium (Lipitor) 20 mg PO HS [facility] Last Admin: 01/04/17 21:08 Dose: 20 mg Clopidogrel Bisulfate (Plavix) 75 mg PO DAILY [facility] Last Admin: 01/04/17 09:09 Dose: 75 mg Enoxaparin Sodium (Lovenox) 40 mg SC DAILY [facility] PRN Reason: Protocol Last Admin: 01/04/17 09:11 Dose: 40 mg Insulin Human Lispro (Humalog) 0 units SC 0630,2100 [facility] PRN Reason: Protocol Last Admin: 01/05/17 05:50 Dose: Not Given Pantoprazole Sodium (Protonix Ec Tab) 40 mg PO DAILY [facility] Last Admin: 01/04/17 09:09 Dose: 40 mg Valsartan (Diovan) 320 mg PO DAILY [facility] Last Admin: 01/04/17 09:10 Dose: 320 mg - Labs Labs: 01/04/17 07:15 01/01/17 07:00 PT 11.4 Seconds (9.8-13.1) 12/17/16 05:25 INR 1.1 (0.9-1.2) 12/17/16 05:25 APTT 30.6 Seconds (25.6-37.1) 12/17/16 05:25 - Constitutional Appears: Well - Head Exam Head Exam: ATRAUMATIC, NORMAL INSPECTION, NORMOCEPHALIC - Eye Exam Eye Exam: EOMI, Normal appearance, PERRL Pupil Exam: NORMAL ACCOMODATION, PERRL - ENT Exam ENT Exam: Mucous Membranes Moist, Normal Exam - Neck Exam Neck Exam: Full ROM, Normal Inspection. absent: Lymphadenopathy - Respiratory Exam Respiratory Exam: Clear to Ausculation Bilateral, NORMAL BREATHING PATTERN - Cardiovascular Exam Cardiovascular Exam: REGULAR RHYTHM, +S1, +S2. absent: Murmur - GI/Abdominal Exam GI & Abdominal Exam: Soft, Normal Bowel Sounds. absent: Tenderness - Exam Bimanual exam: NORMAL BIMANUAL EXAM - Extremities Exam Extremities Exam: Full ROM, Normal Capillary Refill, Normal Inspection. absent : Joint Swelling, Pedal Edema - Back Exam Back Exam: NORMAL INSPECTION - Neurological Exam Neurological Exam: Alert, Awake, CN II-XII Intact, Normal Gait Neuro motor strength exam: Left Upper Extremity: 4, Right Upper Extremity: 3, Left Lower Extremity: 4, Right Lower Extremity: 2/1 - Psychiatric Exam Psychiatric exam: Depressed, Flat Affect - Skin Skin Exam: Dry, Intact, Normal Color, Warm Assessment and Plan (1) CVA (cerebral vascular accident) Assessment & Plan: Continue Current care Status: Acute (2) Diabetes mellitus type 2 in obese Status: Chronic (3) Hypertension Status: Chronic
[2017-01-05] MEDS: Enoxaparin 40 mg Syringe SC SCH (08:49)
[2017-01-05] MEDS: Pantoprazole 40 mg EC Tab PO SCH (08:50)
--- NOTE | 2017-01-05 11:22 | CP.PCM.PN ---
Subjective - Date & Time of Evaluation Date of Evaluation: 01/04/17 Time of Evaluation: 09:30 - Subjective Subjective: Patient continues to do well Has no chest pain or SOB Has good sleep and appetite Objective - Vital Signs/Intake and Output Vital Signs (last 24 hours): Temp Pulse Resp BP Pulse Ox 98.1 F 81 22 139/76 99 01/05/17 08:30 01/05/17 08:49 01/05/17 08:30 01/05/17 08:49 01/05/17 08:30 - Medications Medications: Current Medications Acetaminophen (Tylenol 325mg Tab) 650 mg PO Q6 PRN PRN Reason: pain 4-10 Amlodipine Besylate (Norvasc) 5 mg PO DAILY [facility] Last Admin: 01/05/17 08:49 Dose: 5 mg Aspirin (Aspirin Chewable) 81 mg PO DAILY [facility] Last Admin: 01/05/17 08:48 Dose: 81 mg Atorvastatin Calcium (Lipitor) 20 mg PO HS [facility] Last Admin: 01/04/17 21:08 Dose: 20 mg Clopidogrel Bisulfate (Plavix) 75 mg PO DAILY [facility] Last Admin: 01/05/17 08:48 Dose: 75 mg Enoxaparin Sodium (Lovenox) 40 mg SC DAILY [facility] PRN Reason: Protocol Last Admin: 01/05/17 08:49 Dose: 40 mg Insulin Human Lispro (Humalog) 0 units SC 0630,2100 [facility] PRN Reason: Protocol Last Admin: 01/05/17 05:50 Dose: Not Given Pantoprazole Sodium (Protonix Ec Tab) 40 mg PO DAILY [facility] Last Admin: 01/05/17 08:50 Dose: 40 mg Valsartan (Diovan) 320 mg PO DAILY [facility] Last Admin: 01/05/17 08:49 Dose: 320 mg - Labs Labs: 01/04/17 07:15 01/01/17 07:00 PT 11.4 Seconds (9.8-13.1) 12/17/16 05:25 INR 1.1 (0.9-1.2) 12/17/16 05:25 APTT 30.6 Seconds (25.6-37.1) 12/17/16 05:25 - Head Exam Head Exam: NORMAL INSPECTION - Eye Exam Eye Exam: Normal appearance - ENT Exam ENT Exam: Mucous Membranes Moist - Respiratory Exam Respiratory Exam: Clear to Ausculation Bilateral - Cardiovascular Exam Cardiovascular Exam: REGULAR RHYTHM - GI/Abdominal Exam GI & Abdominal Exam: Normal Bowel Sounds - Neurological Exam Neurological Exam: Awake, Oriented x3 Assessment and Plan (1) Gait disturbance, post-stroke Status: Acute (2) CVA (cerebral vascular accident) Status: Acute (3) Diabetes mellitus type 2 in obese Status: Acute (4) Hypertension Status: Acute - Assessment and Plan (Free Text) Plan: Cont meds Cont tPT accucheck BP monitoring.
[2017-01-06] MEDS: Insulin Lispro (humaLOG) 100 Units/ml Inj SC SCH ×2 (06:00→21:11)
[2017-01-06] MEDS: Pantoprazole 40 mg EC Tab PO SCH (09:02)
[2017-01-06] MEDS: Enoxaparin 40 mg Syringe SC SCH (09:02)
--- NOTE | 2017-01-06 23:12 | CP.PCM.PN ---
Subjective - Date & Time of Evaluation Date of Evaluation: 01/06/17 Time of Evaluation: 08:25 - Subjective Subjective: States feeling better. Ambulates with a walker with assistance. For D/C in 2 days. Objective - Vital Signs/Intake and Output Vital Signs (last 24 hours): Temp Pulse Resp BP Pulse Ox 97.7 F 65 20 152/83 H 99 01/06/17 20:19 01/06/17 20:19 01/06/17 20:19 01/06/17 20:19 01/06/17 20:19 - Medications Medications: Current Medications Acetaminophen (Tylenol 325mg Tab) 650 mg PO Q6 PRN PRN Reason: pain 4-10 Amlodipine Besylate (Norvasc) 10 mg PO DAILY [facility] Last Admin: 01/06/17 09:02 Dose: 10 mg Aspirin (Aspirin Chewable) 81 mg PO DAILY [facility] Last Admin: 01/06/17 09:02 Dose: 81 mg Atorvastatin Calcium (Lipitor) 20 mg PO HS [facility] Last Admin: 01/06/17 21:10 Dose: 20 mg Clopidogrel Bisulfate (Plavix) 75 mg PO DAILY [facility] Last Admin: 01/06/17 09:02 Dose: 75 mg Enoxaparin Sodium (Lovenox) 40 mg SC DAILY [facility] PRN Reason: Protocol Last Admin: 01/06/17 09:02 Dose: 40 mg Insulin Human Lispro (Humalog) 0 units SC 0630,2100 [facility] PRN Reason: Protocol Last Admin: 01/06/17 21:11 Dose: Not Given Pantoprazole Sodium (Protonix Ec Tab) 40 mg PO DAILY [facility] Last Admin: 01/06/17 09:02 Dose: 40 mg Valsartan (Diovan) 320 mg PO DAILY [facility] Last Admin: 01/06/17 09:02 Dose: 320 mg - Labs Labs: 01/04/17 07:15 01/01/17 07:00 PT 11.4 Seconds (9.8-13.1) 12/17/16 05:25 INR 1.1 (0.9-1.2) 12/17/16 05:25 APTT 30.6 Seconds (25.6-37.1) 12/17/16 05:25 - Constitutional Appears: Well, No Acute Distress - Head Exam Head Exam: ATRAUMATIC, NORMAL INSPECTION, NORMOCEPHALIC - Eye Exam Eye Exam: EOMI, Normal appearance, PERRL Pupil Exam: NORMAL ACCOMODATION, PERRL - ENT Exam ENT Exam: Mucous Membranes Moist, Normal Exam - Neck Exam Neck Exam: Full ROM, Normal Inspection. absent: Lymphadenopathy - Respiratory Exam Respiratory Exam: Clear to Ausculation Bilateral, NORMAL BREATHING PATTERN - Cardiovascular Exam Cardiovascular Exam: REGULAR RHYTHM, +S1, +S2. absent: Murmur - GI/Abdominal Exam GI & Abdominal Exam: Soft, Normal Bowel Sounds. absent: Tenderness - Extremities Exam Extremities Exam: Full ROM, Normal Capillary Refill, Normal Inspection. absent : Joint Swelling, Pedal Edema - Back Exam Back Exam: NORMAL INSPECTION - Neurological Exam Neurological Exam: Abnormal Gait, Motor Sensory Deficit - Psychiatric Exam Psychiatric exam: Normal Affect, Normal Mood - Skin Skin Exam: Dry, Intact, Normal Color, Warm Assessment and Plan (1) CVA (cerebral vascular accident) Assessment & Plan: ASA/Plavix/Statin PT/OT Status: Acute (2) Diabetes mellitus type 2 in obese Assessment & Plan: Continue Current Care Status: Chronic (3) Hypertension Status: Chronic
[2017-01-07] MEDS: Insulin Lispro (humaLOG) 100 Units/ml Inj SC SCH ×2 (06:08→21:22)
[2017-01-07 07:49] LABS: HEMATOCRIT 33.2 % (34.0-47.0); MEAN CELL VOLUME 89.6 fl (81.0-99.0); MEAN CORPUSCULAR HEMOGLOBIN 29.3 pg (27.0-31.0); MEAN CORPUSCULAR HGB CONC 32.7 g/dL (33.0-37.0); RED CELL DISTRIBUTION WIDTH 13.7 % (11.5-14.5)
[2017-01-07 08:07] LABS: BLOOD UREA NITROGEN 19 mg/dl (7-17); CALCIUM 9.7 mg/dL (8.4-10.2); CARBON DIOXIDE 30 mmol/L (22-30); CHLORIDE 103 mmol/L (98-107); GFR AFRICAN-AMERICAN > 60; GLUCOSE,RANDOM 86 mg/dL (65-105); POTASSIUM 4.1 MMOL/L (3.6-5.0); SODIUM 141 mmol/l (132-148)
[2017-01-07] MEDS: Pantoprazole 40 mg EC Tab PO SCH (08:46)
[2017-01-07] MEDS: Enoxaparin 40 mg Syringe SC SCH (08:47)
--- NOTE | 2017-01-07 11:30 | CP.PCM.PN ---
Subjective - Date & Time of Evaluation Date of Evaluation: 01/07/17 Time of Evaluation: 10:15 - Subjective Subjective: States feeling better today. She denies any discomfort.BP better controlled today. Objective - Vital Signs/Intake and Output Vital Signs (last 24 hours): Temp Pulse Resp BP Pulse Ox 97.8 F 76 19 144/83 98 01/07/17 08:20 01/07/17 08:47 01/07/17 08:20 01/07/17 08:47 01/07/17 08:20 - Medications Medications: Current Medications Acetaminophen (Tylenol 325mg Tab) 650 mg PO Q6 PRN PRN Reason: pain 4-10 Amlodipine Besylate (Norvasc) 10 mg PO DAILY [facility] Last Admin: 01/07/17 08:47 Dose: 10 mg Aspirin (Aspirin Chewable) 81 mg PO DAILY [facility] Last Admin: 01/07/17 08:47 Dose: 81 mg Atorvastatin Calcium (Lipitor) 20 mg PO HS [facility] Last Admin: 01/06/17 21:10 Dose: 20 mg Clopidogrel Bisulfate (Plavix) 75 mg PO DAILY [facility] Last Admin: 01/07/17 08:46 Dose: 75 mg Enoxaparin Sodium (Lovenox) 40 mg SC DAILY [facility] PRN Reason: Protocol Insulin Human Lispro (Humalog) 0 units SC 0630,2100 [facility] PRN Reason: Protocol Last Admin: 01/07/17 06:08 Dose: Not Given Pantoprazole Sodium (Protonix Ec Tab) 40 mg PO DAILY [facility] Last Admin: 01/07/17 08:46 Dose: 40 mg Valsartan (Diovan) 320 mg PO DAILY [facility] Last Admin: 01/07/17 08:47 Dose: 320 mg - Labs Labs: 01/07/17 07:22 01/07/17 07:22 PT 11.4 Seconds (9.8-13.1) 12/17/16 05:25 INR 1.1 (0.9-1.2) 12/17/16 05:25 APTT 30.6 Seconds (25.6-37.1) 12/17/16 05:25 - Constitutional Appears: Well, No Acute Distress - Head Exam Head Exam: ATRAUMATIC, NORMAL INSPECTION, NORMOCEPHALIC - Eye Exam Eye Exam: EOMI, Normal appearance, PERRL Pupil Exam: NORMAL ACCOMODATION, PERRL - ENT Exam ENT Exam: Mucous Membranes Moist, Normal Exam - Neck Exam Neck Exam: Full ROM, Normal Inspection. absent: Lymphadenopathy - Respiratory Exam Respiratory Exam: Clear to Ausculation Bilateral, NORMAL BREATHING PATTERN - Cardiovascular Exam Cardiovascular Exam: REGULAR RHYTHM, +S1, +S2. absent: Murmur - GI/Abdominal Exam GI & Abdominal Exam: Soft, Normal Bowel Sounds. absent: Tenderness - Extremities Exam Extremities Exam: Full ROM, Normal Capillary Refill, Normal Inspection. absent : Joint Swelling, Pedal Edema - Back Exam Back Exam: NORMAL INSPECTION - Neurological Exam Neurological Exam: Abnormal Gait, Alert, Awake, CN II-XII Intact, Normal Gait - Psychiatric Exam Psychiatric exam: Normal Affect, Normal Mood - Skin Skin Exam: Dry, Intact, Normal Color, Warm Assessment and Plan (1) CVA (cerebral vascular accident) Assessment & Plan: Continue Current care Status: Acute (2) Diabetes mellitus type 2 in obese Status: Chronic (3) Hypertension Status: Chronic Better controlled Continue Current Care Status: Acute
--- NOTE | 2017-01-07 16:07 | PSY.TMCNF ---
Nursing - Vital Signs Vital Signs (Last 8 hours): Vital Signs 01/07/17 01/07/17 08:20 08:47 Temperature 97.8 F Pulse Rate 76 76 Respiratory 19 Rate Blood Pressure 144/83 144/83 O2 Sat by Pulse 98 Oximetry Pain: 0 - Precautions: Precautions: Fall Prevention - Medications/Other Issues Comment: Lovenox 40mg SQ - Consults Comment: was seen by roofing technician re:toenails trimming. seen by . Cardio - Skin Incision Site: sternal area Dressing Status: Changed Incision: Healing Well Incision Line Treatment: Scant serosanguinous drainage noted; dry dressing change rendered as ordered. - Toileting Toileting: Minimal Assistance - Bladder Management Bladder Pattern: Normal Voiding Method: Toilet, Bedpan Bladder Management: Minimal Assistance Frequency of Accidents: none - Bowel Management Bowel Pattern: Normal Bowel Management: Minimal Assistance Frequency of Accidents: none - Transfers Transfers: Minimal Assistance - ADL's ADL's: Minimal Assistance - Pain Management Comments: denies - Patient/Family Teaching Comments: Family training today - Goals/Time Frame Comments: fall prevention - Provider Provider: [facility] - Bed Mobility Bed Mobility: Contact Guard, Minimal Assistance - Transfers Sit to Stand: Supervision - Ambulation Level of Assistance: Supervision Distance (ft.): 150 Assistive Devices: Rolling Walker - Stair Negotiation Stairs: Level of Assistance: Supervision, Verbal Cues, Contact Guard Number of Stairs: 11 Stairs: Assistive Devices: Right Handrail - Standing Balance Static Stand: Supervision - Pain Pain (assessed during therapy session): 4 Management Techniques: Position Change, Inactivity - Insight/Carryover Insight/Carryover: Good - Patient/Family Education Comment: -ongoing fpr splint checks/management. -adls/functional transfers/ mobilty training and w/c management. -RUE HEP/ROM exercises and stretches to increase ROM. -safety strategies, toileting program - Assessment/Plan Assessment: Pt is agreeable to participate in 1:1 and group recreation therapy sessions. Pt is oriented to new leisure tasks to improve word finding, direction following, and problem solving. Pt continues to demonstrate decrease initiation and decrease carryover of task rules. Pt is independent with bingo task and requires min-mod A for verbal cues for other leisure tasks for error recognition and decrease direction following. Pt mood has improved throughout stay although continues to presents with decrease activity tolerance and endurance level. - Goals Goals: -I after setup for Upper body self care. -Min assist and verbal cues for lower body self care with assistive devices. -Caregiver to be I assisting/ cueing and guiding pt with adls functional transfers/bed mobility. -Supine<-> sit with CS/contact guard & verbal cues. -Supervision for bed, commode, w/c, chair and other surface transfers with RW prn. -I after setup grooming/seated. -RUE strength to 4-/5 throughout for improved transfers/mobility and self care - Provider License Number: [id number] Occupational Therapy - Arousal/Attention/Orientation Patient Orientation: Person, Place, Time, Appropriate to Age, Appropriate to Situation - ADL/IADL Self Feeding: Independent, Set-up Help Grooming: Supervision, Verbal Cues, Set-up Help Bathing-Upper Extremity: Supervision, Verbal Cues, Set-up Help Bathing-Lower Extremity: Verbal Cues, Set-up Help, Moderate Assistance Dressing-Upper Extremity: Supervision, Verbal Cues, Set-up Help Dressing-Lower Extremity: Verbal Cues, Set-up Help, Minimal Assistance, Moderate Assistance Comment: takes longer than customary - Sitting Balance Static Sitting: Supervision Dynamic Sitting: Contact Guard Assist Comment: at edge of bed - Transfers Wheelchair to Bed Transfers: Supervision, Verbal Cues, Set-up Help, Contact Guard Toilet Transfers: Supervision, Verbal Cues, Set-up Help Comment: Min assist and verbal cuse to/from shower bench - Wheelchair Management Level of Assistance: Minimal Assistance Distance (ft.): 30 - Upper Extremity Status Right Upper Extremity Comment: impaired MP/IP extension , but able to use as gross assist in bimanual tasks. AROM in R shoulder, elbow, forearm, wrsit WFLS.. strength 3+/5 Left Upper Extremity Comment: AROM is WNLS - Pain Pain (assessed during therapy session): 4 Alleviating Techniques: Position Change, Inactivity - Insight/Carryover Insight/Carryover: Good - Patient/Family Education Comment: -ongoing fpr splint checks/management. -adls/functional transfers/ mobilty training and w/c management. -RUE HEP/ROM exercises and stretches to increase ROM. -safety strategies, toileting program - Assessment/Plan Assessment: Pt is agreeable to participate in 1:1 and group recreation therapy sessions. Pt is oriented to new leisure tasks to improve word finding, direction following, and problem solving. Pt continues to demonstrate decrease initiation and decrease carryover of task rules. Pt is independent with bingo task and requires min-mod A for verbal cues for other leisure tasks for error recognition and decrease direction following. Pt mood has improved throughout stay although continues to presents with decrease activity tolerance and endurance level. - Goals Goals: -I after setup for Upper body self care. -Min assist and verbal cues for lower body self care with assistive devices. -Caregiver to be I assisting/ cueing and guiding pt with adls functional transfers/bed mobility. -Supine<-> sit with CS/contact guard & verbal cues. -Supervision for bed, commode, w/c, chair and other surface transfers with RW prn. -I after setup grooming/seated. -RUE strength to 4-/5 throughout for improved transfers/mobility and self care - Provider Therapist: Lani Camejo OTR/L Speech Therapy - Consult Information Patient on Program: Yes Medical Diagnosis: CVA Treatment Diagnosis: mild cogntive-linguistic deficits - Assessment Problem Solving Impairment: Mild Memory Impairment: Mild - Plan Assessment: Pt is agreeable to participate in 1:1 and group recreation therapy sessions. Pt is oriented to new leisure tasks to improve word finding, direction following, and problem solving. Pt continues to demonstrate decrease initiation and decrease carryover of task rules. Pt is independent with bingo task and requires min-mod A for verbal cues for other leisure tasks for error recognition and decrease direction following. Pt mood has improved throughout stay although continues to presents with decrease activity tolerance and endurance level. Plan: Continue Speech/Language Therapy - Provider Therapist: Yisel Tohmas License Number: [id number] Recreational Therapy - Participation Participation: Participates in Individual and/or Group Sessions - Attendance Attendance: 3-5 times per week - Activities Leisure Activities: Cards and Games - Socialization Level of Socialization: Initiates/interacts freely with care givers and peer - Diversional Time Diversional Time: television, bingo - Assessment Assessment/Plan: Pt is agreeable to participate in 1:1 and group recreation therapy sessions. Pt is oriented to new leisure tasks to improve word finding, direction following, and problem solving. Pt continues to demonstrate decrease initiation and decrease carryover of task rules. Pt is independent with bingo task and requires min-mod A for verbal cues for other leisure tasks for error recognition and decrease direction following. Pt mood has improved throughout stay although continues to presents with decrease activity tolerance and endurance level. Problems Currently Limiting Participation: R side weakness, decrease leisure awareness level, decrease arousal level, decrease carryover of task rules Goals and Time Frame: Pt will be encouraged to participate in 1:1 and group recreation therapy sessions 3-5x week to improve leisure awareness level, direction following, and improve R UE strength. - Provider Therapist: Lidia Adrian, [facility] #[id number] Nutrition - Current Diet Current Diet/ Supplement/ Feedings: Moderate consistent CHO Heart healthy - Appetite Percent Meal Consumed: 75-100% - Comments Comments: Family training today - Assessment/Goals/Time Frame Assessment/Goals/Time Frame: Lovenox 40mg SQ - Provider Provider: Pippa Erickson RD Case Management - Psychosocial Assessment Support Systems: Lives with supportive family Psychological Interventions/Needs: Alert and Oriented motivated to participate in all therapy treatmets Discharge Concerns: Lives with daught who works during the day but will assist in the evening/night time hours. Stairs to negoiate Patient/Family Meeting: Met with patient goal is for home with daughter on Intervention/Goal/Outcome:: Supervision - Discharge Plan Discharge Plan: Home with significant other/family, Home with services - Provider Provider: Caroline Bryant RNoutboard system operator Plan - Treatment Plan Treatment Plan: Physical Therapy, Occupational Therapy, Speech, Patient/Family Education - Discharge Plan Estimated Date of Discharge: 01/09/17 Discharge to: Home
--- NOTE | 2017-01-07 18:25 | CP.PCM.PN ---
Subjective - Date & Time of Evaluation Date of Evaluation: 01/07/17 Time of Evaluation: 18:24 - Subjective Subjective: patient see in room excited to be going home on 01/09/17 she has made excellent gains and it was the direct, excellent care that is enabling her to now go home when this was not what was going to be expected as the initial outcome. Objective - Vital Signs/Intake and Output Vital Signs (last 24 hours): Temp Pulse Resp BP Pulse Ox 97.8 F 76 19 144/83 98 01/07/17 08:20 01/07/17 08:47 01/07/17 08:20 01/07/17 08:47 01/07/17 08:20 - Medications Medications: Current Medications Acetaminophen (Tylenol 325mg Tab) 650 mg PO Q6 PRN PRN Reason: pain 4-10 Amlodipine Besylate (Norvasc) 10 mg PO DAILY [facility] Last Admin: 01/07/17 08:47 Dose: 10 mg Aspirin (Aspirin Chewable) 81 mg PO DAILY [facility] Last Admin: 01/07/17 08:47 Dose: 81 mg Atorvastatin Calcium (Lipitor) 20 mg PO HS [facility] Last Admin: 01/06/17 21:10 Dose: 20 mg Clopidogrel Bisulfate (Plavix) 75 mg PO DAILY [facility] Last Admin: 01/07/17 08:46 Dose: 75 mg Enoxaparin Sodium (Lovenox) 40 mg SC DAILY [facility] PRN Reason: Protocol Insulin Human Lispro (Humalog) 0 units SC 0630,2100 LAY PRN Reason: Protocol Last Admin: 01/07/17 06:08 Dose: Not Given Pantoprazole Sodium (Protonix Ec Tab) 40 mg PO DAILY [facility] Last Admin: 01/07/17 08:46 Dose: 40 mg Valsartan (Diovan) 320 mg PO DAILY [facility] Last Admin: 01/07/17 08:47 Dose: 320 mg - Labs Labs: 01/07/17 07:22 01/07/17 07:22 PT 11.4 Seconds (9.8-13.1) 12/17/16 05:25 INR 1.1 (0.9-1.2) 12/17/16 05:25 APTT 30.6 Seconds (25.6-37.1) 12/17/16 05:25
[2017-01-08] MEDS: Insulin Lispro (humaLOG) 100 Units/ml Inj SC SCH ×2 (06:38→21:36)
[2017-01-08] MEDS: Pantoprazole 40 mg EC Tab PO SCH (08:06)
[2017-01-08] MEDS: Enoxaparin 40 mg Syringe SC SCH (08:07)
--- NOTE | 2017-01-08 16:41 | CP.PCM.PN ---
Subjective - Date & Time of Evaluation Date of Evaluation: 01/08/17 Time of Evaluation: 16:40 - Subjective Subjective: Patient seen in room doing very well lost much weight and is excited to go home tomorrow Objective - Vital Signs/Intake and Output Vital Signs (last 24 hours): Temp Pulse Resp BP Pulse Ox 97 F L 81 19 154/76 H 98 01/08/17 10:00 01/08/17 13:38 01/08/17 10:00 01/08/17 10:00 01/08/17 13:38 - Medications Medications: Current Medications Acetaminophen (Tylenol 325mg Tab) 650 mg PO Q6 PRN PRN Reason: pain 4-10 Amlodipine Besylate (Norvasc) 10 mg PO DAILY [facility] Last Admin: 01/08/17 08:25 Dose: 10 mg Aspirin (Aspirin Chewable) 81 mg PO DAILY [facility] Last Admin: 01/08/17 08:06 Dose: 81 mg Atorvastatin Calcium (Lipitor) 20 mg PO HS [facility] Last Admin: 01/07/17 21:22 Dose: 20 mg Clopidogrel Bisulfate (Plavix) 75 mg PO DAILY [facility] Last Admin: 01/08/17 08:06 Dose: 75 mg Enoxaparin Sodium (Lovenox) 40 mg SC DAILY [facility] PRN Reason: Protocol Last Admin: 01/08/17 08:07 Dose: 40 mg Insulin Human Lispro (Humalog) 0 units SC 0630,2100 [facility] PRN Reason: Protocol Last Admin: 01/08/17 06:38 Dose: Not Given Pantoprazole Sodium (Protonix Ec Tab) 40 mg PO DAILY [facility] Last Admin: 01/08/17 08:06 Dose: 40 mg Valsartan (Diovan) 320 mg PO DAILY [facility] Last Admin: 01/08/17 08:24 Dose: 320 mg - Labs Labs: 01/07/17 07:22 01/07/17 07:22 PT 11.4 Seconds (9.8-13.1) 12/17/16 05:25 INR 1.1 (0.9-1.2) 12/17/16 05:25 APTT 30.6 Seconds (25.6-37.1) 12/17/16 05:25
--- NOTE | 2017-01-08 19:49 | CP.PCM.PN ---
Subjective - Date & Time of Evaluation Date of Evaluation: 01/08/17 Time of Evaluation: 17:40 Objective - Vital Signs/Intake and Output Vital Signs (last 24 hours): Temp Pulse Resp BP Pulse Ox 97 F L 81 19 154/76 H 98 01/08/17 10:00 01/08/17 13:38 01/08/17 10:00 01/08/17 10:00 01/08/17 13:38 - Medications Medications: Current Medications Acetaminophen (Tylenol 325mg Tab) 650 mg PO Q6 PRN PRN Reason: pain 4-10 Amlodipine Besylate (Norvasc) 10 mg PO DAILY [facility] Last Admin: 01/08/17 08:25 Dose: 10 mg Aspirin (Aspirin Chewable) 81 mg PO DAILY [facility] Last Admin: 01/08/17 08:06 Dose: 81 mg Atorvastatin Calcium (Lipitor) 20 mg PO HS [facility] Last Admin: 01/07/17 21:22 Dose: 20 mg Clopidogrel Bisulfate (Plavix) 75 mg PO DAILY [facility] Last Admin: 01/08/17 08:06 Dose: 75 mg Enoxaparin Sodium (Lovenox) 40 mg SC DAILY [facility] PRN Reason: Protocol Last Admin: 01/08/17 08:07 Dose: 40 mg Insulin Human Lispro (Humalog) 0 units SC 0630,2100 LAY PRN Reason: Protocol Last Admin: 01/08/17 06:38 Dose: Not Given Pantoprazole Sodium (Protonix Ec Tab) 40 mg PO DAILY [facility] Last Admin: 01/08/17 08:06 Dose: 40 mg Valsartan (Diovan) 320 mg PO DAILY [facility] Last Admin: 01/08/17 08:24 Dose: 320 mg - Labs Labs: 01/07/17 07:22 01/07/17 07:22 PT 11.4 Seconds (9.8-13.1) 12/17/16 05:25 INR 1.1 (0.9-1.2) 12/17/16 05:25 APTT 30.6 Seconds (25.6-37.1) 12/17/16 05:25 Assessment and Plan (1) CVA (cerebral vascular accident) Status: Acute
[2017-01-09] MEDS: Insulin Lispro (humaLOG) 100 Units/ml Inj SC SCH (07:16)
[2017-01-09 08:11] VITALS: BP 155/79; PULSE 68; RESP 18; TEMP 97.9; O2SAT 97
[2017-01-09] MEDS: Pantoprazole 40 mg EC Tab PO SCH (08:15)
[2017-01-09] MEDS: Enoxaparin 40 mg Syringe SC SCH (08:15)
--- NOTE | 2017-01-09 23:41 | CP.PCM.DIS ---
Provider - Provider Date of Admission: 12/16/16 19:00 Attending physician: Olga Power MD Primary care physician: Jhonny Wagner MD Time Spent in preparation of Discharge (in minutes): 25 Diagnosis - Discharge Diagnosis (1) CVA (cerebral vascular accident) Status: Acute Hospital Course - Lab Results Lab Results: Most Recent Lab Values WBC 11.0 K/uL (4.8-10.8) H 01/07/17 07:22 RBC 3.70 Mil/uL (3.80-5.20) L 01/07/17 07:22 Hgb 10.9 g/dL (12.0-16.0) L 01/07/17 07:22 Hct 33.2 % (34.0-47.0) L 01/07/17 07:22 MCV 89.6 fl (81.0-99.0) 01/07/17 07:22 MCH 29.3 pg (27.0-31.0) 01/07/17 07:22 MCHC 32.7 g/dL (33.0-37.0) L 01/07/17 07:22 RDW 13.7 % (11.5-14.5) 01/07/17 07:22 Plt Count 293 K/uL (130-400) 01/07/17 07:22 MPV 9.6 fl (7.2-11.7) 12/17/16 05:25 Neut % (Auto) 59.5 % (50.0-75.0) 12/17/16 05:25 Lymph % (Auto) 28.0 % (20.0-40.0) 12/17/16 05:25 Maverick % (Auto) 9.4 % (0.0-10.0) 12/17/16 05:25 Eos % (Auto) 2.7 % (0.0-4.0) 12/17/16 05:25 Baso % (Auto) 0.4 % (0.0-2.0) 12/17/16 05:25 Neut # 6.7 K/uL (1.8-7.0) 12/17/16 05:25 Lymph # 3.2 K/uL (1.0-4.3) 12/17/16 05:25 Maverick # 1.1 K/uL (0.0-0.8) H 12/17/16 05:25 Eos # 0.3 K/uL (0.0-0.7) 12/17/16 05:25 Baso # 0.0 K/uL (0.0-0.2) 12/17/16 05:25 PT 11.4 Seconds (9.8-13.1) 12/17/16 05:25 INR 1.1 (0.9-1.2) 12/17/16 05:25 APTT 30.6 Seconds (25.6-37.1) 12/17/16 05:25 Sodium 141 mmol/l (132-148) 01/07/17 07:22 Potassium 4.1 MMOL/L (3.6-5.0) 01/07/17 07:22 Chloride 103 mmol/L (98-107) 01/07/17 07:22 Carbon Dioxide 30 mmol/L (22-30) 01/07/17 07:22 Anion Gap 11 (10-20) 01/07/17 07:22 BUN 19 mg/dl (7-17) H 01/07/17 07:22 Creatinine 0.8 mg/dL (0.7-1.2) 01/07/17 07:22 Est GFR ( Amer) > 60 01/07/17 07:22 Est GFR (Non-Af Amer) > 60 01/07/17 07:22 POC Glucose (mg/dL) 95 mg/dL (65-110) 01/09/17 05:41 Random Glucose 86 mg/dL (65-105) 01/07/17 07:22 Calcium 9.7 mg/dL (8.4-10.2) 01/07/17 07:22 Phosphorus 3.5 mg/dl (2.5-4.5) 12/17/16 05:25 Magnesium 1.7 MG/DL (1.6-2.3) 12/17/16 05:25 Total Bilirubin 0.5 mg/dl (0.2-1.3) 12/17/16 05:25 AST 31 U/L (14-36) 12/17/16 05:25 ALT 35 U/L (9-52) 12/17/16 05:25 Alkaline Phosphatase 61 U/L (38-126) 12/17/16 05:25 Total Protein 6.4 G/DL (6.3-8.2) 12/17/16 05:25 Albumin 3.3 g/dL (3.5-5.0) L 12/17/16 05:25 Globulin 3.2 gm/dL (2.2-3.9) 12/17/16 05:25 Albumin/Globulin Ratio 1.0 (1.0-2.1) 12/17/16 05:25 Vitamin B12 638 pg/mL (239-931) 12/17/16 05:25 TSH 3rd Generation 2.77 mIU/ML (0.46-4.68) 12/17/16 05:25 Discharge Exam - Head Exam Head Exam: ATRAUMATIC, NORMAL INSPECTION, NORMOCEPHALIC Discharge Plan - Follow Up Plan Condition: GOOD Disposition: HOME/ ROUTINE Instructions: Hypertensive Crisis (DC), Stroke (DC) Referrals: Jhonny Wagner MD [Primary Care Provider] -
== END 2017-01-09 16:00 | disposition home or self-care (01) | DRG 57 ==
PROVIDERS: ADMIT Internal Medicine; ATTEND Internal Medicine
PROC: F07Z9FZ Gait Training/Functional Ambulation Treatment using Assistive, Adaptive, Supportive or Protective Equipment (ICD-10-PCS; principal; 2016-12-17)
PROC: F07M6FZ Therapeutic Exercise Treatment of Musculoskeletal System - Whole Body using Assistive, Adaptive, Supportive or Protective Equipment (ICD-10-PCS; 2016-12-17)
PROC: F08Z4FZ Home Management Treatment using Assistive, Adaptive, Supportive or Protective Equipment (ICD-10-PCS; 2016-12-17)
PROC: F06Z8ZZ Motor Speech Treatment (ICD-10-PCS; 2016-12-17)
PROC: 0HBRXZZ Excision of Toe Nail, External Approach (ICD-10-PCS; 2016-12-26)
DX: I69.951 Hemiplegia and hemiparesis following unspecified cerebrovascular disease affecting right dominant side (principal); E11.9 Type 2 diabetes mellitus without complications; B35.1 Tinea unguium; I10 Essential (primary) hypertension; E66.9 Obesity, unspecified; F41.9 Anxiety disorder, unspecified; I87.2 Venous insufficiency (chronic) (peripheral); Z91.81 History of falling; Z86.73 Personal history of transient ischemic attack (TIA), and cerebral infarction without residual deficits; F17.210 Nicotine dependence, cigarettes, uncomplicated; Z90.710 Acquired absence of both cervix and uterus; H53.8 Other visual disturbances; R26.9 Unspecified abnormalities of gait and mobility; F43.21 Adjustment disorder with depressed mood